=== PATIENT | female | born 1965 | race Caucasian/White ===

== ENCOUNTER 2021-06-10 20:51 | Inpatient (IN) | payer OTHER ==
[~2021-06-10] VITALS: Ht 165.1 cm; Wt 89.8 kg
[2021-06-10 21:34] LABS: BASOPHILS ABSOLUTE AUTO 0.04 K/mm3 (0.00-0.23); BASOPHILS PERCENT AUTO 1 % (0-2); EOSINOPHILS ABSOLUTE AUTO 0.06 K/mm3 (0.00-0.68); EOSINOPHILS PERCENT AUTO 1 % (0-6); Hematocrit 46.3 % (33.0-51.0); Hemoglobin 15.4 g/dL (11.5-16.0); IMMATURE GRAN ABSOLUTE AUTO 0.03 K/mm3 (0.00-0.10); IMMATURE GRAN PERCENT AUTO 0 % (0-1); LYMPHOCYTES ABSOLUTE AUTO 2.32 K/mm3 (0.84-5.20); LYMPHOCYTES PERCENT AUTO 30 % (21-46); MONOCYTES ABSOLUTE AUTO 0.52 K/mm3 (0.16-1.47); MONOCYTES PERCENT AUTO 7 % (4-13); Mean Corpuscular HGB 31.4 pg (26.0-34.0); Mean Corpuscular HGB Conc 33.3 g/dL (31.5-36.5); Mean Corpuscular Volume 95 fL (80-100); NEUTROPHILS ABSOLUTE AUTO 4.76 K/mm3 (1.96-9.15); NEUTROPHILS PERCENT AUTO 62 % (41-73); Platelet Count 292 K/mm3 (150-400); White Blood Cell Count 7.73 K/mm3 (4.00-11.30)
[2021-06-10] MEDS ORDERED: PREG300 PO (21:55)
[2021-06-10] MEDS ORDERED: DULO30 PO (21:55)
[2021-06-10] MEDS ORDERED: BUPR150ER PO (21:56)
[2021-06-10 22:15] LABS: Alanine Aminotransfer (ALT/SGP 71 U/L (12-78); Albumin, Blood 3.3 g/dL (3.4-5.0); Albumin/Globulin Ratio 0.8 (0.8-1.8); Alk Phos 181 U/L (50-136); Anion Gap 6 mmol/L (6-16); Aspartate Aminotrans (AST/SGOT 137 U/L (12-37); Bilirubin, Total 0.3 mg/dL (0.1-1.0); Blood Urea Nitrogen 8 mg/dL (8-24); Bun/Creatinine Ratio 9.3 (12.0-20.0); CO2, Blood 29 mmol/L (21-32); Calcium, Blood 9.6 mg/dL (8.5-10.1); Chloride, Blood 105 mmol/L (98-108); Creatinine, Blood 0.86 mg/dL (0.40-1.00); Globulin, Blood 3.9 g/dL (2.2-4.0); Glomerular Filtration Rate >60 (60-); Glucose, Blood 134 mg/dL (70-99); Potassium, Blood 3.7 mmol/L (3.5-5.5); Sodium, Blood 140 mmol/L (136-145); Total Protein, Blood 7.2 g/dL (6.4-8.2)
[2021-06-10 22:26] LABS: Source, Urine Clean Catch
[2021-06-10 23:15] LABS: Appearance, Urine Hazy (Clear); Bilirubin, Urine Neg (Neg); Blood, Urine 4+ (Neg); Color, Urine Yellow (P-Yellow); Glucose Qualitative, Urine Neg (Neg); Ketones, Urine Neg (Neg); Leukocyte Esterase, Urine 3+ (Neg); Nitrite, Urine Neg (Neg); Protein, Urine 2+ (Neg); Urobilinogen, Urine NORM (Normal)
[2021-06-10 23:33] LABS: White Blood Cells, Urine 25-50 /hpf (0-5)
[2021-06-10 23:34] LABS: Bacteria Many /hpf; Squamous Epithelial Cells Mod /hpf (Few)
[2021-06-11 05:17] LABS: Influenza A, PCR NEGATIVE (NEGATIVE); Influenza B, PCR NEGATIVE (NEGATIVE); Resp Syncytial Virus, PCR NEGATIVE (NEGATIVE); SARS-Cov-2 (COVID-19) PCR, MMC NEGATIVE (NEGATIVE)
[2021-06-11 06:22] LABS: Alanine Aminotransfer (ALT/SGP 62 U/L (12-78); Albumin, Blood 3.2 g/dL (3.4-5.0); Alk Phos 165 U/L (50-136); Anion Gap 6 mmol/L (6-16); Aspartate Aminotrans (AST/SGOT 77 U/L (12-37); Bilirubin, Total 0.3 mg/dL (0.1-1.0); Blood Urea Nitrogen 8 mg/dL (8-24); Bun/Creatinine Ratio 10.5 (12.0-20.0); CO2, Blood 29 mmol/L (21-32); Calcium, Blood 8.7 mg/dL (8.5-10.1); Chloride, Blood 105 mmol/L (98-108); Creatinine, Blood 0.76 mg/dL (0.40-1.00); Globulin, Blood 3.2 g/dL (2.2-4.0); Glomerular Filtration Rate >60 (60-); Glucose, Blood 109 mg/dL (70-99); Potassium, Blood 4.2 mmol/L (3.5-5.5); Sodium, Blood 140 mmol/L (136-145); Total Protein, Blood 6.4 g/dL (6.4-8.2)
--- NOTE | 2021-06-11 07:19 | NUR ---
PT ADMITTED FOR SUSPECTED PANCREATITIS, SCHEDULED FOR MRI. PT HYPERTENSIVE THROUGH SHIFT, MEDICATED PER EMAR. PAIN MEDICATED PER EMAR WELL. NO OTHER COMPLAINTS THIS SHIFT. CIWA SCORE ZERO. PT IS A STAND BY ASSIST IN ROOM. WILL CONTINUE TO MONITOR.
--- NOTE | 2021-06-11 18:43 | NUR ---
PT IS A/O AND INDEPENDENT IN THE ROOM. DIET ADVANCED TO CLEARS TODAY AND SHE APPEARS TO BE TOLERATING WELL. DIET TO BE ADVANCED TO FULL LIQUIDS FOR BREAKFAST. TELE DISCONTINUED THIS AFTERNOON AND RETURNED TO EDGING MACHINE FEEDER. PT IS RECIEVING IV FENTANYL FOR EPIGASTRIC AND BACK PAIN. SHE REPORTS FEELING BETTER THAN WHEN SHE FIRST ARRIVED TO HOSPITAL. NO ACUTE CHANGES NOTED THIS SHIFT, WILL CONTINUE TO MONITOR AND REPORT TO ONCOMING RN.
--- NOTE | 2021-06-12 04:25 | NUR ---
MANAGER OF DRILLING SUMMARY ADMITTED FOR PANCREATITIS. PT IS FULL CODE. CONTINUED PAIN MANAGEMENT. PT MEDICATED MULTIPLE TIMES FOR PAIN THROUGHOUT THE NIGHT. PAIN WORSENS WITH AMBULATION TO THE RESTROOM. PT UP EVERY FEW HOURS FOR PAIN MEDICATION. NO OTHER CONCERNS THIS SHIFT.
[2021-06-12 07:20] LABS: Alanine Aminotransfer (ALT/SGP 41 U/L (12-78); Albumin, Blood 2.6 g/dL (3.4-5.0); Albumin/Globulin Ratio 0.8 (0.8-1.8); Alk Phos 124 U/L (50-136); Anion Gap 4 mmol/L (6-16); Aspartate Aminotrans (AST/SGOT 28 U/L (12-37); Bilirubin, Total 0.4 mg/dL (0.1-1.0); Blood Urea Nitrogen 5 mg/dL (8-24); Bun/Creatinine Ratio 6.6 (12.0-20.0); CO2, Blood 32 mmol/L (21-32); Calcium, Blood 8.6 mg/dL (8.5-10.1); Chloride, Blood 106 mmol/L (98-108); Creatinine, Blood 0.76 mg/dL (0.40-1.00); Globulin, Blood 3.3 g/dL (2.2-4.0); Glomerular Filtration Rate >60 (60-); Glucose, Blood 128 mg/dL (70-99); Potassium, Blood 3.7 mmol/L (3.5-5.5); Sodium, Blood 142 mmol/L (136-145); Total Protein, Blood 5.9 g/dL (6.4-8.2)
[2021-06-12] MEDS ORDERED: ONDA4 PO (14:43)
[2021-06-12] MEDS ORDERED: OXYC5 PO (14:44)
[2021-06-12] MEDS ORDERED: B-1100 M2 PO (14:44)
--- NOTE | 2021-06-12 15:22 | NUR ---
I went up to visit this patient in her [facility] room 324, patient's spouse was also in her room and plans to help with discharge transportation. Patient states she lives with her spouse and feels safe to discharge home. Patient denies barriers to discharge. Per chart review with Dr. Marie, patient appropriate for discharge today. I scheduled a hospital follow-up with Dr. Guillermo Tovar on Tuesday, June 15, 2021 at 09:00 AM. Patient acknowledged she will be able to attend appointment.
--- NOTE | 2021-06-12 15:25 | NUR ---
DISCHARGE DISCHARGE INSTRUCTIONS, MEDICATION LIST AND FOLLOW UP APPOINTMENT REVIEWED WITH PT AND HER SPOUSE. QUESTIONS/CONCERNS ANSWERED. PT AND SPOUSE VERBALLY INDICATED UNDERSTANDING OF ALL INSTRUCTIONS RECEIVED. PER PT SHE HAS A FOLLOW UP APPOINTMENT ON TUESDAY, Jun. MEDICATIONS FAXED TO [facility] IN [place] AND HARD COPY SCRIP FOR OXICODONE GIVEN TO PT. ESCORTED OUT VIA W/C BY STUDENT NURSE.
== END 2021-06-12 15:10 | disposition home or self-care (01) | DRG 438 ==
LOC: ER 20:51 → MEDS 06-11 00:58
PROVIDERS: Family Medicine; Physician Assistant; ADMIT Internal Medicine
DX: K85.20 Alcohol induced acute pancreatitis without necrosis or infection (principal); J96.01 Acute respiratory failure with hypoxia; N39.0 Urinary tract infection, site not specified; Z20.822 Contact with and (suspected) exposure to COVID-19; K83.8 Other specified diseases of biliary tract; I10 Essential (primary) hypertension; E66.9 Obesity, unspecified; Z68.33 Body mass index [BMI] 33.0-33.9, adult; Z23 Encounter for immunization; F10.20 Alcohol dependence, uncomplicated; F17.210 Nicotine dependence, cigarettes, uncomplicated; Z88.1 Allergy status to other antibiotic agents; Z79.899 Other long term (current) drug therapy; Z71.41 Alcohol abuse counseling and surveillance of alcoholic; Z71.6 Tobacco abuse counseling
CPT/HCPCS: 0241U; 36415; 71046; 74181; 76705; 80053; 81001; 83690; 85025; 87086; 90686; 93005; 93010; 96374; 96375; 99285-25; A9270; C9113; J0696; J1650; J2270; J2405; J3010; J3411; J7030; J7120

== ENCOUNTER 2021-06-26 13:28 | Inpatient (IN) | payer OTHER ==
[~2021-06-26] VITALS: Ht 165.1 cm; Wt 89.2 kg
[~2021-06-26 13:28] MED LIST: B-1100 M2 PO; BUPR150ER PO; DULO30 PO; ONDA4 PO; OXYC5 PO; PREG200 PO
[2021-06-26 14:43] LABS: BASOPHILS ABSOLUTE AUTO 0.03 K/mm3 (0.00-0.23); BASOPHILS PERCENT AUTO 0 % (0-2); EOSINOPHILS ABSOLUTE AUTO 0.04 K/mm3 (0.00-0.68); EOSINOPHILS PERCENT AUTO 0 % (0-6); Hematocrit 49.1 % (33.0-51.0); Hemoglobin 15.5 g/dL (11.5-16.0); IMMATURE GRAN ABSOLUTE AUTO 0.03 K/mm3 (0.00-0.10); IMMATURE GRAN PERCENT AUTO 0 % (0-1); LYMPHOCYTES ABSOLUTE AUTO 1.52 K/mm3 (0.84-5.20); LYMPHOCYTES PERCENT AUTO 16 % (21-46); MONOCYTES ABSOLUTE AUTO 0.57 K/mm3 (0.16-1.47); MONOCYTES PERCENT AUTO 6 % (4-13); Mean Corpuscular HGB 31.4 pg (26.0-34.0); Mean Corpuscular HGB Conc 31.6 g/dL (31.5-36.5); Mean Corpuscular Volume 100 fL (80-100); Mean Platelet Volume 11.3 fL (9.1-12.4); NEUTROPHILS PERCENT AUTO 77 % (41-73); Platelet Count 270 K/mm3 (150-400); RDW Coefficient Variation 17.4 % (11.7-14.2); Red Blood Cell Count 4.93 M/mm3 (3.80-5.20); White Blood Cell Count 9.49 K/mm3 (4.00-11.30)
[2021-06-26 15:00] LABS: Alanine Aminotransfer (ALT/SGP 17 U/L (12-78); Albumin, Blood 2.9 g/dL (3.4-5.0); Albumin/Globulin Ratio 0.6 (0.8-1.8); Alk Phos 140 U/L (50-136); Anion Gap 6 mmol/L (6-16); Aspartate Aminotrans (AST/SGOT 21 U/L (12-37); Bilirubin, Total 0.7 mg/dL (0.1-1.0); Blood Urea Nitrogen 8 mg/dL (8-24); Bun/Creatinine Ratio 10.2 (12.0-20.0); CO2, Blood 30 mmol/L (21-32); Chloride, Blood 102 mmol/L (98-108); Creatinine, Blood 0.78 mg/dL (0.40-1.00); Globulin, Blood 5.2 g/dL (2.2-4.0); Glomerular Filtration Rate >60 (60-); Glucose, Blood 200 mg/dL (70-99); Potassium, Blood 3.7 mmol/L (3.5-5.5); Sodium, Blood 138 mmol/L (136-145); Total Protein, Blood 8.1 g/dL (6.4-8.2)
--- NOTE | 2021-06-26 16:50 | NUR ---
PT GIVEN SVN ORDERED. BS= SCAT I:E WHEEZES T/O. DECREASED AERATION T/O. PT WAS TRAILED ON ROOM AIR WHILE ON SVN TX. O2 SATS DECR TO 80%, THEN OXYGEN WAS REAPPLIED. RN WAS IN ROOM AT THIS TIME.
[2021-06-27] MEDS ORDERED: TRAM50 PO (00:43)
[2021-06-27 04:40] LABS: BASOPHILS ABSOLUTE AUTO 0.01 K/mm3 (0.00-0.23); BASOPHILS PERCENT AUTO 0 % (0-2); EOSINOPHILS PERCENT AUTO 0 % (0-6); Hematocrit 43.8 % (33.0-51.0); Hemoglobin 13.8 g/dL (11.5-16.0); Mean Corpuscular HGB 31.4 pg (26.0-34.0); Mean Corpuscular HGB Conc 31.5 g/dL (31.5-36.5); Mean Corpuscular Volume 100 fL (80-100); Mean Platelet Volume 11.2 fL (9.1-12.4); Platelet Count 273 K/mm3 (150-400); RDW Coefficient Variation 17.2 % (11.7-14.2); RDW Standard Deviation 62.6 fL (35.1-46.3); Red Blood Cell Count 4.39 M/mm3 (3.80-5.20); White Blood Cell Count 5.78 K/mm3 (4.00-11.30)
[2021-06-27 04:49] LABS: IMMATURE GRAN ABSOLUTE AUTO 0.04 K/mm3 (0.00-0.10); IMMATURE GRAN PERCENT AUTO 1 % (0-1); LYMPHOCYTES ABSOLUTE AUTO 0.54 K/mm3 (0.84-5.20); LYMPHOCYTES PERCENT AUTO 9 % (21-46); MONOCYTES ABSOLUTE AUTO 0.04 K/mm3 (0.16-1.47); MONOCYTES PERCENT AUTO 1 % (4-13); NEUTROPHILS ABSOLUTE AUTO 5.15 K/mm3 (1.96-9.15); NEUTROPHILS PERCENT AUTO 89 % (41-73)
[2021-06-27 05:01] LABS: Alanine Aminotransfer (ALT/SGP 15 U/L (12-78); Albumin, Blood 2.5 g/dL (3.4-5.0); Albumin/Globulin Ratio 0.6 (0.8-1.8); Alk Phos 126 U/L (50-136); Anion Gap 5 mmol/L (6-16); Aspartate Aminotrans (AST/SGOT 15 U/L (12-37); Bilirubin, Total 0.3 mg/dL (0.1-1.0); Blood Urea Nitrogen 11 mg/dL (8-24); Bun/Creatinine Ratio 13.2 (12.0-20.0); CO2, Blood 28 mmol/L (21-32); Calcium, Blood 7.8 mg/dL (8.5-10.1); Chloride, Blood 110 mmol/L (98-108); Creatinine, Blood 0.83 mg/dL (0.40-1.00); Globulin, Blood 3.9 g/dL (2.2-4.0); Glomerular Filtration Rate >60 (60-); Glucose, Blood 188 mg/dL (70-99); Potassium, Blood 4.3 mmol/L (3.5-5.5); Sodium, Blood 143 mmol/L (136-145); Total Protein, Blood 6.4 g/dL (6.4-8.2)
--- NOTE | 2021-06-27 06:32 | NUR ---
SPRAY APPLICATOR SUMMARY PATIENT IS AN ADMISSION OF THE SHIFT. SHE IS ALERT AND ORIENTED. ASSESSMENT DONE AND VITALS CHECKED AND RECORDED. SHE DOES NOT HAVE ANY SKIN BREAKDOWN. PATIENT IN PAIN, GOT AN ORDER FOR TRAMADOL SEE EMAR SAME WAS ADMINISTERED. SHE WAS MADE COMFORTABLE, SAFETY MEASURES IN PLACE. WILL CONTINUE TO MONITOR HER.
--- NOTE | 2021-06-27 18:10 | NUR ---
SHIFT SUMMARY; PATIENT STARTED SHIFT BEING VERY TEARFUL AND WANTING PAIN MEDICATIONS. THIS RN COMMUNICATES WITH AND HE CHANGES MEDICATIONS FOR THIS PATIENT TO ACCOMADATE HER HOME SCHEDULE. PATIENT SITS ON SIDE OF BED WHEN SHE IS AWAKE FACING WINDOW. SHE DOES REST PERIODICALLY DURING THE DAY AND IS UP TO THE BATHROOM WITHOUT ASSIST NEEDED. SHE IS AO X 4 TODAY AND IS COOPERATIVE WITH CARE. SPOUSE VISITS PATIENT TODAY. AND VERBALIZED THAT PATIENT WILL RETURN HOME WITH HIM AT [place]. PATIENTS LUNGS ARE CLEAR IN UPPER LOBES HOWEVER WHEEZES ARE NOTED THAT CLEAR WITH COUGH. PATIENT RECEIVED INSTRUCTION FROM RT TODAY ON HOW TO USE INCENTIVE SPIROMETER AND IS ABLE TO DEMONSTRATE FOR HIM. WILL REMAIN AVAILABLE FOR THIS PATIENT FOR ANY WANTS OR NEEDS UNTIL HAND OFF AT SHIFT CHANGE. RACHEL CULP RN
--- NOTE | 2021-06-28 18:06 | NUR ---
SHIFT SUMMARY; PATIENT UP TO SHOWER TODAY. AMBULATES TO AND FROM BATHROOM WITHOUT ASSIST. DENIES ANY SOB WITH EXERTION. SHE ASKS FOR PAIN MEDICATION X 3 TODAY FOR GENRALIZED BODY ACHES AND BACK PAIN. ORDERED NYSTATIN CREME FOR PATIENT YEAST INFECTION UNDER BREASTS AND IN ALBERT AREA. RACHEL CULP RN
--- NOTE | 2021-06-29 05:11 | NUR ---
PT A7O X4 WITH SLOW RESPONSE. ON O2 @ 3L/NC. SR IN THE 70'S. RESTED WELL OVER NIGHT AND DID NOT REQUIRE PAIN MEDICATION.
--- NOTE | 2021-06-29 18:34 | NUR ---
SHIFT SUMMARY PT HAS BEEN ANXIOUS FOR PAIN MEDICATIONS ALL DAY. SHE WAS MEANT TO DISCHARGE THIS AFTERNOON DR WANTS HER TO HAVE MORE ABX AND STEROIDS BEFORE SHE GOES HOME. SHE STATES SHE IS ANXIOUS TO LEAVE. BESIDES BEING ANXIOUS AND AGITATED FOR PAIN MEDICATION SHE HAS BEEN COOPERATIVE WITH CARE. HOPEFUL TO DISCHARGE TOMORROW WILL CONTINUE TO MONITOR.
--- NOTE | 2021-06-30 05:01 | NUR ---
SHIFT SUMMARY PT AOX3 AND WATCHING TV IN BED AT THE START OF THIS SHIFT. PT HAD WHEEZES HEARD WHILE AMBULATING TO THE BATHROOM BUT LUNGS SOUND CLEAR. PT. C/O PAIN AND HAS PHONE SET TO REMIND NURSES ABOUT PAIN MEDS. PT. C/O BACK, NECK AND LEGS HURTING THIS SHIFT BUT MEDICATED PER EMAR AND EFFECTIVE. PT HAS NOT RESTED MUCH THIS SHIFT AND CURRENTLY IN BED WATCHING TV. THIS NURSE WILL CONTINUE TO MONITOR UNTIL REPORT IS GIVEN.
[2021-06-30 05:37] LABS: BASOPHILS ABSOLUTE AUTO 0.02 K/mm3 (0.00-0.23); BASOPHILS PERCENT AUTO 0 % (0-2); EOSINOPHILS PERCENT AUTO 0 % (0-6); Hemoglobin 13.3 g/dL (11.5-16.0); IMMATURE GRAN ABSOLUTE AUTO 0.11 K/mm3 (0.00-0.10); IMMATURE GRAN PERCENT AUTO 1 % (0-1); LYMPHOCYTES ABSOLUTE AUTO 0.66 K/mm3 (0.84-5.20); LYMPHOCYTES PERCENT AUTO 8 % (21-46); MONOCYTES ABSOLUTE AUTO 0.11 K/mm3 (0.16-1.47); MONOCYTES PERCENT AUTO 1 % (4-13); Mean Corpuscular HGB 31.3 pg (26.0-34.0); Mean Corpuscular HGB Conc 31.7 g/dL (31.5-36.5); Mean Corpuscular Volume 99 fL (80-100); Mean Platelet Volume 10.6 fL (9.1-12.4); NEUTROPHILS ABSOLUTE AUTO 7.01 K/mm3 (1.96-9.15); NEUTROPHILS PERCENT AUTO 89 % (41-73); Platelet Count 375 K/mm3 (150-400); RDW Coefficient Variation 16.8 % (11.7-14.2); RDW Standard Deviation 60.3 fL (35.1-46.3); Red Blood Cell Count 4.25 M/mm3 (3.80-5.20); White Blood Cell Count 7.91 K/mm3 (4.00-11.30)
[2021-06-30 06:27] LABS: Alanine Aminotransfer (ALT/SGP 19 U/L (12-78); Albumin, Blood 2.6 g/dL (3.4-5.0); Albumin/Globulin Ratio 0.7 (0.8-1.8); Alk Phos 112 U/L (50-136); Anion Gap 8 mmol/L (6-16); Aspartate Aminotrans (AST/SGOT 16 U/L (12-37); Bilirubin, Total 0.4 mg/dL (0.1-1.0); Blood Urea Nitrogen 10 mg/dL (8-24); Bun/Creatinine Ratio 13.6 (12.0-20.0); CO2, Blood 32 mmol/L (21-32); Calcium, Blood 8.9 mg/dL (8.5-10.1); Chloride, Blood 97 mmol/L (98-108); Creatinine, Blood 0.74 mg/dL (0.40-1.00); Globulin, Blood 3.7 g/dL (2.2-4.0); Glomerular Filtration Rate >60 (60-); Glucose, Blood 283 mg/dL (70-99); Potassium, Blood 4.6 mmol/L (3.5-5.5); Sodium, Blood 137 mmol/L (136-145); Total Protein, Blood 6.3 g/dL (6.4-8.2)
--- NOTE | 2021-06-30 09:19 | NUR ---
I went to visit Maci yesterday in her [facility] room 327. Patient was alert and sitting upright in her bed. Patient wanted to discuss changing her [place] PCP to someone at the [facility] location, as we previously discussed last time she was in the hospital. She was advised to complete and return the PCP Change Request form. She states she did this and returned it to [place] and has not received a response back. I plan to reach out to the [employer] pharmaceutical officer regarding this. I do not think they will fulfill her request. She states she is wanting to change providers due to Dr. Tovar cutting her Lyrica and Tramodal prescriptions in half. She states she would also like to request the female version of viagra due to a low libido. I discussed this with Dr. Brambila and agreed this is something she should discuss with her PCP. Patient is aware she will likely discharge home today with Home 02.
[2021-06-30] MEDS ORDERED: GUAI600T33 PO (11:56)
[2021-06-30] MEDS ORDERED: ACET325 PO (11:56)
[2021-06-30] MEDS ORDERED: Prinivil10 MG PO (11:56)
[2021-06-30] MEDS ORDERED: AZIT250 PO (11:57)
[2021-06-30] MEDS ORDERED: ALBU90OI INH (11:57)
[2021-06-30] MEDS ORDERED: VISBIOME 112.51 EACH PO (11:57)
[2021-06-30] MEDS ORDERED: FLUT1DIS8 INH (11:58)
[2021-06-30] MEDS ORDERED: CEFP200 PO (11:58)
[2021-06-30] MEDS ORDERED: Prednisone10 MG PO (11:59)
--- NOTE | 2021-06-30 12:21 | NUR ---
Per chart review with Dr. Brambila, patient appropriate for discharge. Patient feels safe to return home and denies barriers to discharge. I scheduled a hospital follow up for tomorrow with Leandra Guerrero at 11am. Patient is aware of this. Patient again asked about the status of her provider change request. I reached out to Caitlyn - Anna Coordinator at [facility]. The request has been received and yet to be reviewed. Patient states her will be here at [facility] about 1:00PM to help with transportation home.
--- NOTE | 2021-06-30 13:29 | NUR ---
DISCHARGE SUMMARY PT DISCHARGED TO HOME. PT LEFT ROOM VIA WHEELCHAIR AT THIS TIME WITH COUTIERIER ESCORT. IV DC'D AND BELONGINGS RETURNED. PT HAD HOME 02 EVAL AND PER KASEY BAH, PT REQUIRES 2L O2 WITH EXERTION. PT EDUCATED ON SMOKING CESSATION AND NOT USING 02 WHILE SMOKING, PT AGREES. PT EDUCATED ON MEDICATIONS WELL. CHARLY MIRANDA PEYTONA NOTIFIED OF THE 02 REQUIREMENT WHO AGREES TO CONTACT [facility] TO DELIVER THE 02 TANK TO PATIENT'S HOME. PATIENT REFUSED TO WAIT FOR DISCHARGE IN ORDER FOR DELIVERY OF TANK TO HAPPEN HERE AT THE HOSPITAL. PT EDUCATED ABOUT THE RISKS ASSOCIATED WITH LEAVING WITHOUT HOME 02, PT AWARE. PT AGREES TO ADMIN DIR MEDICATIONS FROM PHARMACY AND TO FOLLOW UP WITH PCP TOMORROW.
== END 2021-06-30 13:53 | disposition home or self-care (01) | DRG 193 ==
LOC: ER 13:28 → MEDS 18:30
PROVIDERS: Hospitalist; Physician Assistant; ADMIT Internal Medicine
DX: J18.9 Pneumonia, unspecified organism (principal); J96.01 Acute respiratory failure with hypoxia; J44.0 Chronic obstructive pulmonary disease with (acute) lower respiratory infection; J44.1 Chronic obstructive pulmonary disease with (acute) exacerbation; F41.9 Anxiety disorder, unspecified; I10 Essential (primary) hypertension; G89.4 Chronic pain syndrome; G62.9 Polyneuropathy, unspecified; Z88.8 Allergy status to other drugs, medicaments and biological substances; F32.A Depression, unspecified; Z79.899 Other long term (current) drug therapy; F17.210 Nicotine dependence, cigarettes, uncomplicated
CPT/HCPCS: 36415; 71046; 80053; 83605; 83690; 83735; 83880; 84145; 85025; 87070; 87205; 94640; 94668; 94760; 94761; 96372; 96374; 96375; 96376; 99285-25; A9270; G0480; J0456; J0692; J0696; J1650; J1885; J2405; J2920; J2930; J3370; J7030; J7050; J7512

== ENCOUNTER 2021-12-19 11:17 | Inpatient (IN) | payer OTHER ==
[~2021-12-19] VITALS: Ht 170.2 cm; Wt 86.2 kg
[~2021-12-19 11:17] MED LIST changes: +ACET325 PO; +ALBU90OI INH; +AZIT250 PO; +CEFP200 PO; +FLUT1DIS8 INH; +GUAI600T33 PO; +Prednisone10 MG PO; +Prinivil10 MG PO; +TRAM50 PO; +VISBIOME 112.51 EACH PO
[2021-12-19 11:38] LABS: BASOPHILS ABSOLUTE AUTO 0.01 K/mm3 (0.00-0.23); BASOPHILS PERCENT AUTO 0 % (0-2); EOSINOPHILS ABSOLUTE AUTO 0.02 K/mm3 (0.00-0.68); EOSINOPHILS PERCENT AUTO 0 % (0-6); Hematocrit 34.1 % (33.0-51.0); Hemoglobin 11.6 g/dL (11.5-16.0); IMMATURE GRAN ABSOLUTE AUTO 0.03 K/mm3 (0.00-0.10); IMMATURE GRAN PERCENT AUTO 0 % (0-1); LYMPHOCYTES ABSOLUTE AUTO 0.66 K/mm3 (0.84-5.20); LYMPHOCYTES PERCENT AUTO 7 % (21-46); MONOCYTES ABSOLUTE AUTO 0.41 K/mm3 (0.16-1.47); MONOCYTES PERCENT AUTO 4 % (4-13); Mean Corpuscular Volume 94 fL (80-100); Mean Platelet Volume 10.4 fL (9.1-12.4); NEUTROPHILS ABSOLUTE AUTO 8.31 K/mm3 (1.96-9.15); NEUTROPHILS PERCENT AUTO 88 % (41-73); Platelet Count 261 K/mm3 (150-400); RDW Coefficient Variation 14.7 % (11.7-14.2); RDW Standard Deviation 51.4 fL (35.1-46.3); Red Blood Cell Count 3.62 M/mm3 (3.80-5.20); White Blood Cell Count 9.44 K/mm3 (4.00-11.30)
[2021-12-19 11:57] LABS: Albumin, Blood 2.6 g/dL (3.4-5.0); Albumin/Globulin Ratio 0.7 (0.8-1.8); Bilirubin, Total 0.6 mg/dL (0.1-1.0); Bun/Creatinine Ratio 9.9 (12.0-20.0); Calcium, Blood 8.5 mg/dL (8.5-10.1); Creatinine, Blood 4.33 mg/dL (0.40-1.00); Globulin, Blood 3.6 g/dL (2.2-4.0); Potassium, Blood 3.8 mmol/L (3.5-5.5); Total Protein, Blood 6.2 g/dL (6.4-8.2)
[2021-12-19] MEDS ORDERED: OMEP20ER PO (12:20)
[2021-12-19 14:25] LABS: Magnesium, Blood 1.9 mg/dL (1.6-2.4); Phosphorus, Blood 4.9 mg/dL (2.5-4.9); Thyroid Stimulating Hormone 0.175 uIU/mL (0.360-4.800)
[2021-12-19 14:29] LABS: Source, Urine Foley catheter
[2021-12-19 14:36] LABS: Appearance, Urine Hazy (Clear); Bilirubin, Urine Neg (Neg); Blood, Urine 2+ (Neg); Color, Urine Yellow (P-Yellow); Glucose Qualitative, Urine Neg (Neg); Ketones, Urine Neg (Neg); Leukocyte Esterase, Urine Neg (Neg); Nitrite, Urine Neg (Neg); Protein, Urine 1+ (Neg); Urobilinogen, Urine NORM (Normal)
[2021-12-19 14:48] LABS: Influenza A, PCR NEGATIVE (NEGATIVE); Influenza B, PCR NEGATIVE (NEGATIVE); Resp Syncytial Virus, PCR NEGATIVE (NEGATIVE); SARS-Cov-2 (COVID-19) PCR, MMC NEGATIVE (NEGATIVE)
[2021-12-19 14:49] LABS: Amorphous Light (0-Heavy); Bacteria Mod /hpf; Hyaline Casts 0-2 /lpf (0-2); Mucus Light (0-Heavy); Red Blood Cells, Urine 0-2 /hpf (0-2); Squamous Epithelial Cells Rare /hpf (Few); Transitional Epithelial Cells Rare /hpf (0-Rare); White Blood Cells, Urine 0-2 /hpf (0-5)
[2021-12-19 14:49] LABS: Free Thyroxine 1.16 ng/dL (0.70-1.60); Thyroxine (T4) 7.9 ug/dL (4.8-13.9)
[2021-12-19 14:50] LABS: Triiodothyronine, Free 1.18 pg/mL (2.18-3.98)
[2021-12-20 05:13] LABS: BASOPHILS ABSOLUTE AUTO 0.01 K/mm3 (0.00-0.23); BASOPHILS PERCENT AUTO 0 % (0-2); EOSINOPHILS ABSOLUTE AUTO 0.05 K/mm3 (0.00-0.68); EOSINOPHILS PERCENT AUTO 1 % (0-6); Hematocrit 33.2 % (33.0-51.0); Hemoglobin 11.1 g/dL (11.5-16.0); IMMATURE GRAN ABSOLUTE AUTO 0.03 K/mm3 (0.00-0.10); IMMATURE GRAN PERCENT AUTO 0 % (0-1); LYMPHOCYTES ABSOLUTE AUTO 1.32 K/mm3 (0.84-5.20); LYMPHOCYTES PERCENT AUTO 16 % (21-46); MONOCYTES PERCENT AUTO 6 % (4-13); Mean Corpuscular HGB 31.8 pg (26.0-34.0); Mean Corpuscular HGB Conc 33.4 g/dL (31.5-36.5); Mean Corpuscular Volume 95 fL (80-100); Mean Platelet Volume 10.9 fL (9.1-12.4); NEUTROPHILS ABSOLUTE AUTO 6.56 K/mm3 (1.96-9.15); NEUTROPHILS PERCENT AUTO 77 % (41-73); Platelet Count 242 K/mm3 (150-400); RDW Coefficient Variation 15.2 % (11.7-14.2); RDW Standard Deviation 53.1 fL (35.1-46.3); Red Blood Cell Count 3.49 M/mm3 (3.80-5.20); White Blood Cell Count 8.47 K/mm3 (4.00-11.30)
--- NOTE | 2021-12-20 05:36 | NUR ---
PT IS ALERT ORIENTED 2-3, SOME CONFUSION T/O SHIFT. PT IS WEARING ATTENDS, 2L O2 APPLIED AT NIGHT PT BREATHES SHALLOW WHEN ASLEEP. NICOTINE PATCH ON R SHOULDER.
[2021-12-20 05:53] LABS: Albumin, Blood 2.2 g/dL (3.4-5.0); Albumin/Globulin Ratio 0.7 (0.8-1.8); Bilirubin, Total 0.5 mg/dL (0.1-1.0); Calcium, Blood 8.4 mg/dL (8.5-10.1); Creatinine, Blood 3.25 mg/dL (0.40-1.00); Globulin, Blood 3.3 g/dL (2.2-4.0); Potassium, Blood 3.6 mmol/L (3.5-5.5); Total Protein, Blood 5.5 g/dL (6.4-8.2)
--- NOTE | 2021-12-20 16:43 | NUR ---
AOX3-4, SOME FORGETFULNESS. CAN MAKE SOME NEEDS KNOWN, COOPERATIVE WITH MEDICATIONS AND CARE. SBA WITH FWW WHEN AMBULATING. O2 VIA NC AT 2L, MOSTLY NEEDED WHEN SLEEPING; PT HAS BEEN SLEEPING MOST OF THE DAY. PT HAS ATE VERY LITTLE TODAY; ONLY DRINKING SMALL AMOUNT OF SODA. PT STATES PAIN IN HER NECK, NO PAIN MEDS ORDERED D/T KIDNEY FUNCTION; HEAT PAD CURRENTLY IN USE. PT HAS OCCASIONAL INCONTINENCE WHILE SLEEPING. FAMILY VISITED THIS MORNING. CALL-LIGHT WITHIN REACH; BED IN LOWEST POSITION.
--- NOTE | 2021-12-21 00:04 | NUR ---
PT GOT UP TO USE THE BSC AND I WAS STRAIGHTENING UP THEIR BED I NOTICED THERE WAS A VAPE PEN IN THE BAG ON HER BED. PT WOULD NOT ALLOW ME TO REMOVE THE BAG NOR SEE WHAT WAS INSIDE OF IT BEFORE. I REMOVED THE DEVICE AND NOTIFIED THE NURSE WHO ADVISED ME TO REMOVE THE CARTRIDGE AND GIVE THE PEN ITSELF BACK TO THE PT. I ALSO NOTIFIED MY CHARGE NURSE. THE PT WAS VERY UPSET WITH ME FOR TOUCHING THEIR STUFF. I INFORMED THEM THAT THEY WERE IN THE HOSPITAL AND THAT THIS IS A SMOKE FREE CAMPUS AND THAT THEY CANNOT SMOKE HERE. THEY SWORE AT ME AND TOLD ME TO GET OUT.
[2021-12-21 04:31] LABS: BASOPHILS ABSOLUTE AUTO 0.02 K/mm3 (0.00-0.23); BASOPHILS PERCENT AUTO 0 % (0-2); EOSINOPHILS ABSOLUTE AUTO 0.05 K/mm3 (0.00-0.68); EOSINOPHILS PERCENT AUTO 1 % (0-6); Hematocrit 32.5 % (33.0-51.0); Hemoglobin 10.9 g/dL (11.5-16.0); IMMATURE GRAN ABSOLUTE AUTO 0.03 K/mm3 (0.00-0.10); IMMATURE GRAN PERCENT AUTO 0 % (0-1); LYMPHOCYTES ABSOLUTE AUTO 1.65 K/mm3 (0.84-5.20); LYMPHOCYTES PERCENT AUTO 17 % (21-46); MONOCYTES ABSOLUTE AUTO 0.63 K/mm3 (0.16-1.47); MONOCYTES PERCENT AUTO 6 % (4-13); Mean Corpuscular HGB 31.5 pg (26.0-34.0); Mean Corpuscular HGB Conc 33.5 g/dL (31.5-36.5); Mean Corpuscular Volume 94 fL (80-100); Mean Platelet Volume 10.8 fL (9.1-12.4); NEUTROPHILS ABSOLUTE AUTO 7.39 K/mm3 (1.96-9.15); NEUTROPHILS PERCENT AUTO 76 % (41-73); Platelet Count 244 K/mm3 (150-400); RDW Coefficient Variation 15.1 % (11.7-14.2); RDW Standard Deviation 51.9 fL (35.1-46.3); Red Blood Cell Count 3.46 M/mm3 (3.80-5.20); White Blood Cell Count 9.77 K/mm3 (4.00-11.30)
[2021-12-21 05:04] LABS: Albumin/Globulin Ratio 0.6 (0.8-1.8); Bilirubin, Total 0.5 mg/dL (0.1-1.0); Bun/Creatinine Ratio 13.1 (12.0-20.0); Calcium, Blood 8.4 mg/dL (8.5-10.1); Creatinine, Blood 2.06 mg/dL (0.40-1.00); Globulin, Blood 3.3 g/dL (2.2-4.0); Potassium, Blood 3.3 mmol/L (3.5-5.5); Total Protein, Blood 5.3 g/dL (6.4-8.2)
--- NOTE | 2021-12-21 05:32 | NUR ---
PT IS CONFUSED AT TIMES, WAS USING HER VAPE IN HER ROOM, VAPE CARTRIDGE PUT IN A BAG IN MED DRAWER WITH PT WAD IMPREGNATOR IT, TO BE RETURNED AT DISCHARGE. 1-ASSIST WITH FWW TO RESTROOM. BED ALARM ON.
[2021-12-22 04:35] LABS: BASOPHILS ABSOLUTE AUTO 0.02 K/mm3 (0.00-0.23); BASOPHILS PERCENT AUTO 0 % (0-2); EOSINOPHILS ABSOLUTE AUTO 0.08 K/mm3 (0.00-0.68); EOSINOPHILS PERCENT AUTO 1 % (0-6); Hematocrit 32.3 % (33.0-51.0); IMMATURE GRAN ABSOLUTE AUTO 0.05 K/mm3 (0.00-0.10); IMMATURE GRAN PERCENT AUTO 1 % (0-1); LYMPHOCYTES ABSOLUTE AUTO 1.85 K/mm3 (0.84-5.20); LYMPHOCYTES PERCENT AUTO 18 % (21-46); MONOCYTES ABSOLUTE AUTO 0.73 K/mm3 (0.16-1.47); MONOCYTES PERCENT AUTO 7 % (4-13); Mean Corpuscular HGB Conc 34.1 g/dL (31.5-36.5); Mean Corpuscular Volume 94 fL (80-100); Mean Platelet Volume 10.4 fL (9.1-12.4); NEUTROPHILS ABSOLUTE AUTO 7.85 K/mm3 (1.96-9.15); NEUTROPHILS PERCENT AUTO 74 % (41-73); Platelet Count 229 K/mm3 (150-400); RDW Standard Deviation 51.8 fL (35.1-46.3); Red Blood Cell Count 3.44 M/mm3 (3.80-5.20); White Blood Cell Count 10.58 K/mm3 (4.00-11.30)
[2021-12-22 05:01] LABS: Albumin, Blood 1.9 g/dL (3.4-5.0); Albumin/Globulin Ratio 0.5 (0.8-1.8); Bilirubin, Total 0.4 mg/dL (0.1-1.0); Bun/Creatinine Ratio 12.9 (12.0-20.0); Calcium, Blood 8.2 mg/dL (8.5-10.1); Creatinine, Blood 1.4 mg/dL (0.40-1.00); Globulin, Blood 3.5 g/dL (2.2-4.0); Potassium, Blood 3.1 mmol/L (3.5-5.5); Total Protein, Blood 5.4 g/dL (6.4-8.2)
--- NOTE | 2021-12-22 05:43 | NUR ---
PT IS ALERT, FORGETFUL, CONFUSION CLEARING SOME. 1-ASSIST WITH FWW. IVF RUNNING AT 100.
[2021-12-22] MEDS ORDERED: DULO60 PO (10:43)
[2021-12-22] MEDS ORDERED: PREG75 PO (10:43)
[2021-12-22] MEDS ORDERED: Budeprion Xl300 MG PO (10:45)
[2021-12-22] MEDS ORDERED: AMOCLA875 PO (10:45)
--- NOTE | 2021-12-22 11:03 | NUR ---
PATIENT DISCHARGED MD assessed pt at [facility], orders for discharge home & home health. Case management went to discuss HH with patient, pt refused. RN discussed HH with pt and stated she did not need any help. Reviewed discharge teaching, pt/family verbalized understanding. IV removed, site WNL. Pt left medical floor at 1110.
== END 2021-12-22 11:07 | disposition home health service (06) | DRG 682 ==
LOC: ER 11:17 → MEDS 11:18
PROVIDERS: Emergency Medicine; Family Medicine; Physician Assistant; ADMIT Internal Medicine
DX: N17.9 Acute kidney failure, unspecified (principal); J18.9 Pneumonia, unspecified organism; G92.8 Other toxic encephalopathy; N39.0 Urinary tract infection, site not specified; F17.213 Nicotine dependence, cigarettes, with withdrawal; F19.239 Other psychoactive substance dependence with withdrawal, unspecified; Z20.822 Contact with and (suspected) exposure to COVID-19; K70.30 Alcoholic cirrhosis of liver without ascites; I95.9 Hypotension, unspecified; J44.9 Chronic obstructive pulmonary disease, unspecified; F32.A Depression, unspecified; M19.90 Unspecified osteoarthritis, unspecified site; E55.9 Vitamin D deficiency, unspecified; Z90.89 Acquired absence of other organs; Z90.710 Acquired absence of both cervix and uterus; Z96.642 Presence of left artificial hip joint; Z88.1 Allergy status to other antibiotic agents; Z79.899 Other long term (current) drug therapy; W01.0XXA Fall on same level from slipping, tripping and stumbling without subsequent striking against object, initial encounter
CPT/HCPCS: 0241U; 36415; 70450; 71045; 72125; 74176; 80053; 81001; 82140; 82550; 83605; 83690; 83735; 83970; 84100; 84436; 84439; 84443; 84481; 85025; 87040; 87086; 93005; 93010; 96361; 96365; 96366; 96368; 96372; 96375; 97116; 97162; 97165; 97530; 99285-25; A9270; G0378; J0456; J0696; J1650; J3411; J3475; J7030; J7042; J7050; P9612

== ENCOUNTER 2022-01-06 20:09 | Emergency (ER) | payer OTHER ==
[~2022-01-06] VITALS: Ht 157.5 cm; Wt 72.6 kg
[~2022-01-06 20:09] MED LIST changes: +AMOCLA875 PO; +Budeprion Xl300 MG PO; +DULO60 PO; +OMEP20ER PO; +PREG75 PO
[2022-01-06 20:55] LABS: BASOPHILS ABSOLUTE AUTO 0.06 K/mm3 (0.00-0.23); BASOPHILS PERCENT AUTO 1 % (0-2); EOSINOPHILS ABSOLUTE AUTO 0.18 K/mm3 (0.00-0.68); EOSINOPHILS PERCENT AUTO 2 % (0-6); Hematocrit 40.7 % (33.0-51.0); Hemoglobin 13.6 g/dL (11.5-16.0); IMMATURE GRAN ABSOLUTE AUTO 0.04 K/mm3 (0.00-0.10); IMMATURE GRAN PERCENT AUTO 1 % (0-1); LYMPHOCYTES ABSOLUTE AUTO 2.53 K/mm3 (0.84-5.20); LYMPHOCYTES PERCENT AUTO 32 % (21-46); MONOCYTES ABSOLUTE AUTO 0.68 K/mm3 (0.16-1.47); MONOCYTES PERCENT AUTO 9 % (4-13); Mean Corpuscular HGB 30.8 pg (26.0-34.0); Mean Corpuscular HGB Conc 33.4 g/dL (31.5-36.5); Mean Corpuscular Volume 92 fL (80-100); NEUTROPHILS ABSOLUTE AUTO 4.49 K/mm3 (1.96-9.15); NEUTROPHILS PERCENT AUTO 56 % (41-73); Platelet Count 695 K/mm3 (150-400); RDW Coefficient Variation 16.2 % (11.7-14.2); Red Blood Cell Count 4.41 M/mm3 (3.80-5.20); White Blood Cell Count 7.98 K/mm3 (4.00-11.30)
[2022-01-06 21:13] LABS: Source, Urine Clean Catch
[2022-01-06 21:24] LABS: Blood, Urine Neg (Neg); Color, Urine Amber (P-Yellow); Glucose Qualitative, Urine Neg (Neg); Ketones, Urine 1+ (Neg); Leukocyte Esterase, Urine 1+ (Neg); Nitrite, Urine Neg (Neg); Protein, Urine 2+ (Neg); Urobilinogen, Urine 2+ (Normal)
[2022-01-06 21:31] LABS: Appearance, Urine Clear (Clear); Bilirubin, Urine 1+ (Neg)
[2022-01-06 21:32] LABS: Albumin, Blood 2.8 g/dL (3.4-5.0); Albumin/Globulin Ratio 0.6 (0.8-1.8); Bilirubin, Total 1.2 mg/dL (0.1-1.0); Bun/Creatinine Ratio 11.2 (12.0-20.0); Calcium, Blood 9.8 mg/dL (8.5-10.1); Creatinine, Blood 0.98 mg/dL (0.40-1.00); Globulin, Blood 4.8 g/dL (2.2-4.0); Potassium, Blood 3.9 mmol/L (3.5-5.5); Total Protein, Blood 7.6 g/dL (6.4-8.2)
[2022-01-06 21:33] LABS: Bacteria Mod /hpf; Red Blood Cells, Urine 0-2 /hpf (0-2); Squamous Epithelial Cells Few /hpf (Few)
== END 2022-01-06 23:03 | disposition home or self-care (01) ==
LOC: ER 20:09
PROVIDERS: Student in an Organized Health Care Education/Training Program
DX: R10.13 Epigastric pain (principal); J44.9 Chronic obstructive pulmonary disease, unspecified; F17.200 Nicotine dependence, unspecified, uncomplicated; Z88.8 Allergy status to other drugs, medicaments and biological substances; Z79.899 Other long term (current) drug therapy; Z88.0 Allergy status to penicillin; Z96.642 Presence of left artificial hip joint; Z53.21 Procedure and treatment not carried out due to patient leaving prior to being seen by health care provider
CPT/HCPCS: 74177; 80053; 81001; 83690; 85025; J1885; Q9967

== ENCOUNTER 2022-01-08 08:19 | Inpatient (IN) | payer OTHER ==
[~2022-01-08] VITALS: Ht 165.1 cm; Wt 78.5 kg
[2022-01-08 09:14] LABS: Hematocrit 40.3 % (33.0-51.0); Hemoglobin 13.5 g/dL (11.5-16.0); Mean Corpuscular HGB 31.3 pg (26.0-34.0); Mean Corpuscular HGB Conc 33.5 g/dL (31.5-36.5); Mean Corpuscular Volume 93 fL (80-100); Mean Platelet Volume 10.9 fL (9.1-12.4); Platelet Count 601 K/mm3 (150-400); RDW Coefficient Variation 16.2 % (11.7-14.2); RDW Standard Deviation 55.5 fL (35.1-46.3); Red Blood Cell Count 4.32 M/mm3 (3.80-5.20)
[2022-01-08 09:26] LABS: BASOPHILS ABSOLUTE AUTO 0.03 K/mm3 (0.00-0.23); BASOPHILS PERCENT AUTO 0 % (0-2); EOSINOPHILS ABSOLUTE AUTO 0.11 K/mm3 (0.00-0.68); EOSINOPHILS PERCENT AUTO 2 % (0-6); IMMATURE GRAN ABSOLUTE AUTO 0.02 K/mm3 (0.00-0.10); IMMATURE GRAN PERCENT AUTO 0 % (0-1); LYMPHOCYTES ABSOLUTE AUTO 2.19 K/mm3 (0.84-5.20); LYMPHOCYTES PERCENT AUTO 31 % (21-46); MONOCYTES ABSOLUTE AUTO 0.58 K/mm3 (0.16-1.47); MONOCYTES PERCENT AUTO 8 % (4-13); NEUTROPHILS ABSOLUTE AUTO 4.13 K/mm3 (1.96-9.15); NEUTROPHILS PERCENT AUTO 59 % (41-73); White Blood Cell Count 7.06 K/mm3 (4.00-11.30)
[2022-01-08 09:38] LABS: Albumin, Blood 2.6 g/dL (3.4-5.0); Albumin/Globulin Ratio 0.5 (0.8-1.8); Bilirubin, Total 1.5 mg/dL (0.1-1.0); Bun/Creatinine Ratio 13.9 (12.0-20.0); Calcium, Blood 9.7 mg/dL (8.5-10.1); Creatinine, Blood 0.93 mg/dL (0.40-1.00); Globulin, Blood 4.8 g/dL (2.2-4.0); Potassium, Blood 4.8 mmol/L (3.5-5.5); Total Protein, Blood 7.4 g/dL (6.4-8.2)
[2022-01-08 15:57] LABS: International Normalized Ratio 1.01; Prothrombin Time Results 10.6 Sec (9.7-11.5)
--- NOTE | 2022-01-08 16:16 | NUR ---
PATIENT ARRIVED TO ROOM 363 AT 1558. PATIENT'S SPOUSE AT THE BEDSIDE. ON 2L O2 VIA NC.
[2022-01-08 16:52] LABS: Creatine Kinase MB 1.8 ng/mL (0.0-3.6); Salicylate <1.7 mg/dL (2.8-20.0)
[2022-01-08 16:56] LABS: CPK Creatine Kinase 29 U/L (26-193); Creatine Kinase MB Index 6.2 (0.0-4.0)
[2022-01-08 16:58] LABS: Acetaminophen, Random <2.0 ug/mL (10.0-30.0)
[2022-01-08] MEDS ORDERED: TRAM50 PO (17:51)
[2022-01-08] MEDS ORDERED: OMEP20ER PO (17:53)
[2022-01-08] MEDS ORDERED: BUPR150ER PO (17:53)
[2022-01-08 19:26] LABS: U Amphetamine Screen Not Detected; U Barbituate Screen Not Detected; U Benzodiazapine Screen Not Detected; U Buprenorphine Screen Not Detected; U Cannabinoids Screen Not Detected; U Cocaine Screen Not Detected; U Methadone Screen Not Detected; U Methamphetamine Screen Not Detected; U Opiates Screen DETECTED; U Oxycodone Screen Not Detected; U Phencyclidine Screen Not Detected; U Propoxyphene Screen Not Detected
--- NOTE | 2022-01-08 19:44 | NUR ---
PATIENT IS ALERT AND ORIENTED. ON 2L O2 VIA NC. SBA TO THE BATHROOM. AT THE BEDSIDE. C/O ABDOMINAL PAIN, MEDICATED PER EMAR. DR. GUTIERREZ ORDERED A CLEAR LIQUID DIET.
[2022-01-08 20:49] LABS: Adenovirus F 40/41 Not Detected (NOT DETECT); Astrovirus Not Detected (NOT DETECT); Campylobacter Sp Not Detected (NOT DETECT); Cryptosporidium Not Detected (NOT DETECT); Cyclospora Cayetanensis Not Detected (NOT DETECT); E. Coli O157 Not Detected (NOT DETECT); Entamoeba Histolytica Not Detected (NOT DETECT); Enteroaggregative E. coli-EAEC Not Detected (NOT DETECT); Enteropathogenic E. coli-EPEC Not Detected (NOT DETECT); Enterotoxigenic E. coli-ETEC Not Detected (NOT DETECT); Giardia Lamblia Not Detected (NOT DETECT); Norovirus GI/GII Not Detected (NOT DETECT); Plesiomonas Shigelloides Not Detected (NOT DETECT); Rotavirus A Not Detected (NOT DETECT); Salmonella Sp Not Detected (NOT DETECT); Sapovirus Not Detected (NOT DETECT); Shiga Toxin-prod E. coli-STEC Not Detected (NOT DETECT); Shigella/Enteroin E. coli-EIEC Not Detected (NOT DETECT); Vibrio Cholerae Not Detected (NOT DETECT); Vibrio Sp Not Detected (NOT DETECT); Yersinia Enterocolitica Not Detected (NOT DETECT)
[2022-01-09 05:21] LABS: BASOPHILS ABSOLUTE AUTO 0.06 K/mm3 (0.00-0.23); BASOPHILS PERCENT AUTO 1 % (0-2); EOSINOPHILS ABSOLUTE AUTO 0.15 K/mm3 (0.00-0.68); EOSINOPHILS PERCENT AUTO 3 % (0-6); Hematocrit 38.5 % (33.0-51.0); Hemoglobin 12.1 g/dL (11.5-16.0); IMMATURE GRAN ABSOLUTE AUTO 0.01 K/mm3 (0.00-0.10); IMMATURE GRAN PERCENT AUTO 0 % (0-1); LYMPHOCYTES ABSOLUTE AUTO 1.95 K/mm3 (0.84-5.20); LYMPHOCYTES PERCENT AUTO 35 % (21-46); MONOCYTES ABSOLUTE AUTO 0.54 K/mm3 (0.16-1.47); MONOCYTES PERCENT AUTO 10 % (4-13); Mean Corpuscular HGB 30.6 pg (26.0-34.0); Mean Corpuscular HGB Conc 31.4 g/dL (31.5-36.5); Mean Platelet Volume 11.1 fL (9.1-12.4); NEUTROPHILS ABSOLUTE AUTO 2.82 K/mm3 (1.96-9.15); NEUTROPHILS PERCENT AUTO 51 % (41-73); Platelet Count 557 K/mm3 (150-400); RDW Coefficient Variation 16.4 % (11.7-14.2); RDW Standard Deviation 59.5 fL (35.1-46.3); Red Blood Cell Count 3.95 M/mm3 (3.80-5.20); White Blood Cell Count 5.53 K/mm3 (4.00-11.30)
[2022-01-09 05:58] LABS: Albumin, Blood 2.5 g/dL (3.4-5.0); Albumin/Globulin Ratio 0.6 (0.8-1.8); Bilirubin, Total 0.7 mg/dL (0.1-1.0); Bun/Creatinine Ratio 13.8 (12.0-20.0); Calcium, Blood 9.1 mg/dL (8.5-10.1); Creatinine, Blood 0.8 mg/dL (0.40-1.00); Magnesium, Blood 1.8 mg/dL (1.6-2.4); Phosphorus, Blood 3.7 mg/dL (2.5-4.9); Potassium, Blood 3.5 mmol/L (3.5-5.5); Total Protein, Blood 6.5 g/dL (6.4-8.2)
[2022-01-09 06:15] LABS: Mean Corpuscular Volume 98 fL (80-100)
--- NOTE | 2022-01-09 08:00 | NUR ---
pt sitting up in her chair reports epigastric pain 8/10, slow speech, Dr. Arrington in and states she's much more clear than yesterday, 2mg morphin give iv she reports good relief, currently on 1 liter o2, sats 96%, will continue to titrate, lungs are clear dim in bases, resp even and unlabored, no cough noted, but she reports an occ productive cough but doesn't know what color, hrr, no edema noted, ppp+2, cap refill<3sec, vs stable, afebrile, iv site to left fa, site is clear and patent, btx4, abd flat soft nontender, voids without diff, skin c/w/d, up ad edwardo in room, ann-marie, call light in reach.
--- NOTE | 2022-01-09 11:21 | NUR ---
iv is burning a bit, and slightly puffy, does flush, but replaced this was d/c'd intact, new 20G to rfa, x1 attempt, with good blood return, pt tolerated well, laying in bed at this time. call light in reach.
--- NOTE | 2022-01-09 18:17 | NUR ---
pt has been sitting up in a chair all day, medicated twice for pain, she seems like she is a bit foggy all day, no acute changes this shift. call light in reach.
--- NOTE | 2022-01-10 03:34 | NUR ---
PATIENT AWAKE AND MORE ALERT EARLY IN EVENING. OOB TO CHAIR AND BATHROOM PRIOR TO HS MEDS. VSS. TOLERATING IVF WELL. 99% ON 1 LITER VIA NC. AFTER RECEIVING HS MEDS INCLUDING REQUESTED PAIN MED (MORPHINE) FOR 8/10 ABD PAIN, PATIENT WAS MADE COMFORTABLE AND WENT TO SLEEP. DURING 3:00 ROUNDS, THIS RN FOUND PATIENT WITH 02 REMOVED AND LEGS AND BOTTOM HANGING OF THE SIDE OF THE BED WITH ONLY HER HEAD AND UPPER TORSO STILL ON MATTRESS. NAREN WAS VERY DIFFICULT TO AROUSE WITH YELLING AND STERNAL RUB BEFORE SHE GROGGILY WOKE UP AND ASKED WHAT WAS WRONG. NASAL CANULLA REPLACED AT ONE LITER FOR 100% IMMEDIATELY. VAPE CIGARETTE FOUND IN THE BED WAS LOCKED IN PATIENTS MEDICATION DRAWER OUTSIDE OF THE ROOM. VS REMAINED STABLE, AND PATIENT WAS ABLE TO GET LEGS AND BOTTOM BACK INTO THE BED. PRESENT WITHIN SECONDS WERE RT AND AUTOMOTIVE REFINISH TECHNICIAN FOR ASSESSMENT AND ASSISTANCE. NO FURTHER INCIDENCE OVERNIGHT
[2022-01-10 05:59] LABS: BASOPHILS ABSOLUTE AUTO 0.03 K/mm3 (0.00-0.23); BASOPHILS PERCENT AUTO 1 % (0-2); EOSINOPHILS ABSOLUTE AUTO 0.11 K/mm3 (0.00-0.68); EOSINOPHILS PERCENT AUTO 2 % (0-6); Hematocrit 35.8 % (33.0-51.0); Hemoglobin 11.2 g/dL (11.5-16.0); IMMATURE GRAN PERCENT AUTO 0 % (0-1); LYMPHOCYTES ABSOLUTE AUTO 1.76 K/mm3 (0.84-5.20); LYMPHOCYTES PERCENT AUTO 38 % (21-46); MONOCYTES ABSOLUTE AUTO 0.44 K/mm3 (0.16-1.47); MONOCYTES PERCENT AUTO 9 % (4-13); Mean Corpuscular HGB 30.9 pg (26.0-34.0); Mean Corpuscular HGB Conc 31.3 g/dL (31.5-36.5); Mean Corpuscular Volume 99 fL (80-100); Mean Platelet Volume 11.6 fL (9.1-12.4); NEUTROPHILS ABSOLUTE AUTO 2.35 K/mm3 (1.96-9.15); NEUTROPHILS PERCENT AUTO 50 % (41-73); Platelet Count 465 K/mm3 (150-400); RDW Coefficient Variation 16.2 % (11.7-14.2); RDW Standard Deviation 59.2 fL (35.1-46.3); Red Blood Cell Count 3.62 M/mm3 (3.80-5.20); White Blood Cell Count 4.69 K/mm3 (4.00-11.30)
[2022-01-10 06:22] LABS: Albumin, Blood 2.4 g/dL (3.4-5.0); Albumin/Globulin Ratio 0.6 (0.8-1.8); Bilirubin, Total 0.3 mg/dL (0.1-1.0); Bun/Creatinine Ratio 9.9 (12.0-20.0); Calcium, Blood 8.9 mg/dL (8.5-10.1); Creatinine, Blood 0.91 mg/dL (0.40-1.00); Globulin, Blood 3.8 g/dL (2.2-4.0); Magnesium, Blood 1.8 mg/dL (1.6-2.4); Potassium, Blood 3.4 mmol/L (3.5-5.5); Total Protein, Blood 6.2 g/dL (6.4-8.2)
--- NOTE | 2022-01-10 09:00 | NUR ---
pt very sleepy this am, did not wake through v.s., a/ox3, when she did wake, she states she hasn't slept for a few days and was just very tired, night nurse reported she felt like she was to sedated, lungs are clear dim in bases, resp even and unlabored, no cough noted, hrr, voids without diff, skin c/w/d, mamariya, ann-marie, call light in reach.
--- NOTE | 2022-01-10 10:50 | NUR ---
Dr. Arrington was in to speak to the pt, will be discharging today. family in with pt.
[2022-01-10] MEDS ORDERED: CHOLESTYRAMI239.4 G1 PO (11:03)
[2022-01-10] MEDS ORDERED: Norco 7.5-3251 EACH PO (11:03)
[2022-01-10] MEDS ORDERED: CREON DR 12,001 EACH PO (11:04)
[2022-01-10] MEDS ORDERED: ONDA4ODT MM (11:04)
[2022-01-10] MEDS ORDERED: SPIRIVA RESPIMAT4 G3 INH (11:05)
--- NOTE | 2022-01-10 12:01 | NUR ---
pt has been discharged to home, iv removed intact, went over discharge instructions with her and her family she verbalized understanding, new scripts were faxed to [facility], she has a hard copy of the [facility] script in her discharge packet, she was offered a shower but declined. left via wheelchair with engineering model maker and family in attendence, with all her belongings.
[2022-01-11 07:08] LABS: HBSAG SCREEN Negative (Negative); HCV AB 0.1 (0.0-0.9); HEP A AB, IGM Negative (Negative); HEP B CORE AB, IGM Negative (Negative)
== END 2022-01-10 11:59 | disposition home or self-care (01) | DRG 445 ==
LOC: ER 08:19 → MEDS 14:27
PROVIDERS: Physician Assistant; ADMIT Family Medicine
DX: K83.1 Obstruction of bile duct (principal); K86.1 Other chronic pancreatitis; R09.02 Hypoxemia; R74.01 Elevation of levels of liver transaminase levels; J44.9 Chronic obstructive pulmonary disease, unspecified; G89.29 Other chronic pain; M54.9 Dorsalgia, unspecified; F32.A Depression, unspecified; K70.30 Alcoholic cirrhosis of liver without ascites; F17.210 Nicotine dependence, cigarettes, uncomplicated; M19.90 Unspecified osteoarthritis, unspecified site; E55.9 Vitamin D deficiency, unspecified; K72.90 Hepatic failure, unspecified without coma; G62.9 Polyneuropathy, unspecified; Z96.642 Presence of left artificial hip joint; Z90.710 Acquired absence of both cervix and uterus; Z90.722 Acquired absence of ovaries, bilateral; Z98.890 Other specified postprocedural states; Z90.89 Acquired absence of other organs; Z88.6 Allergy status to analgesic agent; Z79.899 Other long term (current) drug therapy
CPT/HCPCS: 36415; 71046; 74181; 80053; 80074; 82010; 82140; 82550; 82553; 82977; 83605; 83690; 83735; 84100; 85025; 85610; 85730; 86301; 87507; 94640; 94664; 94760; 96374; 96375; 96376; 99285-25; A9270; C9113; G0480; J0696; J1170; J1644; J2270; J2405; J7030

== ENCOUNTER → 2022-05-11 | Outpatient (CLI) | payer OTHER ==
[~2022-05-11] MED LIST changes: +CEPH500 PO; +CHOLESTYRAMI239.4 G1 PO; +CREON DR 12,001 EACH PO; +Norco 7.5-3251 EACH PO; +ONDA4ODT MM; +OXAYDO5 M1 PO; +SPIRIVA RESPIMAT4 G3 INH
[2022-05-11 09:29] LABS: BASOPHILS ABSOLUTE AUTO 0.04 K/mm3 (0.00-0.23); BASOPHILS PERCENT AUTO 1 % (0-2); EOSINOPHILS PERCENT AUTO 1 % (0-6); Hematocrit 38.7 % (33.0-51.0); Hemoglobin 12.5 g/dL (11.5-16.0); IMMATURE GRAN ABSOLUTE AUTO 0.02 K/mm3 (0.00-0.10); IMMATURE GRAN PERCENT AUTO 0 % (0-1); LYMPHOCYTES ABSOLUTE AUTO 1.79 K/mm3 (0.84-5.20); LYMPHOCYTES PERCENT AUTO 25 % (21-46); MONOCYTES ABSOLUTE AUTO 0.49 K/mm3 (0.16-1.47); MONOCYTES PERCENT AUTO 7 % (4-13); Mean Corpuscular HGB 31.9 pg (26.0-34.0); Mean Corpuscular HGB Conc 32.3 g/dL (31.5-36.5); Mean Corpuscular Volume 99 fL (80-100); Mean Platelet Volume 10.3 fL (9.1-12.4); NEUTROPHILS ABSOLUTE AUTO 4.78 K/mm3 (1.96-9.15); NEUTROPHILS PERCENT AUTO 66 % (41-73); Platelet Count 300 K/mm3 (150-400); RDW Standard Deviation 54.5 fL (35.1-46.3); Red Blood Cell Count 3.92 M/mm3 (3.80-5.20); White Blood Cell Count 7.22 K/mm3 (4.00-11.30)
[2022-05-11 09:49] LABS: Albumin/Globulin Ratio 0.8 (0.8-1.8); Bilirubin, Total 0.2 mg/dL (0.1-1.0); Calcium, Blood 9.1 mg/dL (8.5-10.1); Creatinine, Blood 1.15 mg/dL (0.40-1.00); Globulin, Blood 3.9 g/dL (2.2-4.0); Potassium, Blood 4.9 mmol/L (3.5-5.5); Thyroid Stimulating Hormone 0.834 uIU/mL (0.360-4.800); Total Protein, Blood 6.9 g/dL (6.4-8.2)
== END ==
LOC: LAB SHORT 09:26 → LAB 09:26
PROVIDERS: Physician Assistant
DX: R53.83 Other fatigue (principal)
CPT/HCPCS: 80053; 84443; 85025

== ENCOUNTER 2022-11-02 20:01 | Inpatient (IN) | payer OTHER ==
[~2022-11-02] VITALS: Ht 167.6 cm; Wt 78.0 kg
[2022-11-02 20:41] LABS: BASOPHILS ABSOLUTE AUTO 0.05 K/mm3 (0.00-0.23); BASOPHILS PERCENT AUTO 0 % (0-2); EOSINOPHILS ABSOLUTE AUTO 0.01 K/mm3 (0.00-0.68); EOSINOPHILS PERCENT AUTO 0 % (0-6); IMMATURE GRAN ABSOLUTE AUTO 0.09 K/mm3 (0.00-0.10); IMMATURE GRAN PERCENT AUTO 1 % (0-1); LYMPHOCYTES ABSOLUTE AUTO 0.67 K/mm3 (0.84-5.20); LYMPHOCYTES PERCENT AUTO 4 % (21-46); MONOCYTES ABSOLUTE AUTO 0.67 K/mm3 (0.16-1.47); MONOCYTES PERCENT AUTO 4 % (4-13); Mean Corpuscular HGB 32.1 pg (26.0-34.0); Mean Corpuscular Volume 100 fL (80-100); Mean Platelet Volume 10.4 fL (9.1-12.4); NEUTROPHILS ABSOLUTE AUTO 17.12 K/mm3 (1.96-9.15); NEUTROPHILS PERCENT AUTO 92 % (41-73); Platelet Count 344 K/mm3 (150-400); RDW Coefficient Variation 15.5 % (11.7-14.2); RDW Standard Deviation 57.8 fL (35.1-46.3); Red Blood Cell Count 4.99 M/mm3 (3.80-5.20); White Blood Cell Count 18.61 K/mm3 (4.00-11.30)
[2022-11-02 21:00] LABS: Albumin, Blood 3.5 g/dL (3.4-5.0); Albumin/Globulin Ratio 0.9 (0.8-1.8); Bilirubin, Total 0.4 mg/dL (0.1-1.0); Bun/Creatinine Ratio 14.9 (12.0-20.0); Creatinine, Blood 2.81 mg/dL (0.40-1.00); Globulin, Blood 4.1 g/dL (2.2-4.0); Potassium, Blood 4.3 mmol/L (3.5-5.5); Total Protein, Blood 7.6 g/dL (6.4-8.2)
[2022-11-02 21:02] LABS: Base Excess Venous -8.6 mmol/L; Bicarbonate Venous 16.9 mmol/L (24.0-30.0); PCO2 Venous 57.3 mmHg (38-42)
[2022-11-02 21:03] LABS: pH Blood Venous 7.16 (7.34-7.37)
[2022-11-02 21:54] LABS: Influenza A, PCR NEGATIVE (NEGATIVE); Influenza B, PCR NEGATIVE (NEGATIVE); Resp Syncytial Virus, PCR NEGATIVE (NEGATIVE); SARS-Cov-2 (COVID-19) PCR, MMC NEGATIVE (NEGATIVE)
[2022-11-02 22:04] LABS: Prothrombin Time Results 10.5 Sec (9.7-11.5)
[2022-11-02 23:08] LABS: Base Excess Venous -7.4 mmol/L; Bicarbonate Venous 17.5 mmol/L (24.0-30.0)
[2022-11-02 23:10] LABS: pH Blood Venous 7.13 (7.34-7.37)
[2022-11-02 23:29] LABS: Source, Urine Clean Catch
[2022-11-02 23:36] LABS: Bilirubin, Urine Neg (Neg); Blood, Urine 2+ (Neg); Glucose Qualitative, Urine Neg (Neg); Ketones, Urine Neg (Neg); Leukocyte Esterase, Urine 1+ (Neg); Nitrite, Urine Neg (Neg); Protein, Urine 2+ (Neg); Specific Gravity, Urine 1.025 (1.003-1.022); Urobilinogen, Urine NORM (Normal)
[2022-11-02 23:53] LABS: Appearance, Urine Clear (Clear); Color, Urine Yellow (P-Yellow)
[2022-11-02 23:56] LABS: Amorphous Light (0-Heavy); Bacteria Few /hpf; Red Blood Cells, Urine 0-2 /hpf (0-2); Squamous Epithelial Cells Few /hpf (Few)
[2022-11-03] VITALS (77 sets, daily range): BP systolic 77–132; BP diastolic 37–102
[2022-11-03 01:16] LABS: Source, Urine Foley catheter
[2022-11-03 01:19] LABS: Bilirubin, Urine Neg (Neg); Blood, Urine 3+ (Neg); Glucose Qualitative, Urine Neg (Neg); Ketones, Urine Neg (Neg); Leukocyte Esterase, Urine Neg (Neg); Nitrite, Urine Neg (Neg); Protein, Urine 2+ (Neg); Urobilinogen, Urine NORM (Normal)
[2022-11-03 01:26] LABS: Appearance, Urine Clear (Clear); Color, Urine Yellow (P-Yellow)
[2022-11-03 01:28] LABS: Amorphous Light (0-Heavy); Bacteria Few /hpf; Red Blood Cells, Urine 0-2 /hpf (0-2); Squamous Epithelial Cells Few /hpf (Few); White Blood Cells, Urine 0-2 /hpf (0-5)
[2022-11-03 01:36] LABS: U Amphetamine Screen Not Detected; U Barbituate Screen Not Detected; U Benzodiazapine Screen Not Detected; U Buprenorphine Screen Not Detected; U Cannabinoids Screen Not Detected; U Cocaine Screen Not Detected; U Methadone Screen Not Detected; U Methamphetamine Screen Not Detected; U Opiates Screen DETECTED; U Oxycodone Screen Not Detected; U Phencyclidine Screen Not Detected; U Propoxyphene Screen Not Detected
--- NOTE | 2022-11-03 02:31 | NUR ---
ASSUMED CARE PT ARRIVED ON UNIT AT 0045. OBTUNDED, BUT AROUSES TO VERBAL STIMULI AND IS ABLE TO APPROPRIATELY ANSWER ORIENTATION QUESTIONS (REQUIRING SEVERAL PROMPTS). SPO2 >92% ON BIPAP; MAP <65; HR 80-90'S. LR INFUSING PER ORDER. DR LAW CALLED ABOUT POSITIVE OPIATES ON TOX SCREEN W/ ORDERS FOR NARCAN; NARCAN HAD NO VISIBLE EFFECT. MOTTLED IN BILATERAL EXTREMITIES. WASHINGTON CATHETER PATENT AND DRAINING TO GRAVITY.
--- NOTE | 2022-11-03 03:33 | NUR ---
UPDATE PT BECAME HYPOTENSIVE W/ SATS DROPPING INTO THE MID 80'S. RT AT BEDSIDE WITH BLEED IN INCREASED TO 5L VIA BIPAP. DR LAW CALLED W/ LEVOPHED ORDERED.
[2022-11-03 03:50] LABS: BASOPHILS ABSOLUTE AUTO 0.05 K/mm3 (0.00-0.23); BASOPHILS PERCENT AUTO 0 % (0-2); EOSINOPHILS ABSOLUTE AUTO 0.01 K/mm3 (0.00-0.68); EOSINOPHILS PERCENT AUTO 0 % (0-6); Hematocrit 43.5 % (33.0-51.0); Hemoglobin 13.7 g/dL (11.5-16.0); IMMATURE GRAN ABSOLUTE AUTO 0.37 K/mm3 (0.00-0.10); IMMATURE GRAN PERCENT AUTO 2 % (0-1); LYMPHOCYTES ABSOLUTE AUTO 0.79 K/mm3 (0.84-5.20); LYMPHOCYTES PERCENT AUTO 4 % (21-46); MONOCYTES ABSOLUTE AUTO 0.96 K/mm3 (0.16-1.47); MONOCYTES PERCENT AUTO 5 % (4-13); Mean Corpuscular HGB 32.2 pg (26.0-34.0); Mean Corpuscular HGB Conc 31.5 g/dL (31.5-36.5); Mean Corpuscular Volume 102 fL (80-100); Mean Platelet Volume 10.6 fL (9.1-12.4); NEUTROPHILS ABSOLUTE AUTO 18.16 K/mm3 (1.96-9.15); NEUTROPHILS PERCENT AUTO 89 % (41-73); Platelet Count 272 K/mm3 (150-400); RDW Coefficient Variation 15.6 % (11.7-14.2); RDW Standard Deviation 58.8 fL (35.1-46.3); Red Blood Cell Count 4.26 M/mm3 (3.80-5.20); White Blood Cell Count 20.34 K/mm3 (4.00-11.30)
[2022-11-03 04:08] LABS: Albumin, Blood 2.5 g/dL (3.4-5.0); Albumin/Globulin Ratio 0.7 (0.8-1.8); Bilirubin, Total 0.5 mg/dL (0.1-1.0); Bun/Creatinine Ratio 15.4 (12.0-20.0); Calcium, Blood 8.2 mg/dL (8.5-10.1); Creatinine, Blood 2.66 mg/dL (0.40-1.00); Globulin, Blood 3.4 g/dL (2.2-4.0); Potassium, Blood 4.2 mmol/L (3.5-5.5); Total Protein, Blood 5.9 g/dL (6.4-8.2)
--- NOTE | 2022-11-03 05:26 | NUR ---
SHIFT SUMMARY P[T REMAINS OBTUNDED. NO OBVIOUS NEURO CHANGES, IS STILL ABLE TO ANSWER ORIENTATION QUESTIONS APPROPRIATELY; REQUIRING SEVERAL PROMPTS. LEVOPHED AND LR INFUSING (SEE FLOWSHEET) W/ MAP >65; SPO2 >92% ON BIPAP; HR IN THE 80'S. WASHINGTON CATHETER IS PATENT AND DRAINING TO GRAVITY. NO ACUTE EVENTS EXCEPT FOR THOSE MENTIONED IN PREVIOUS NOTE/S
[2022-11-03 10:45] LABS: Base Excess Venous -7.4 mmol/L; Bicarbonate Venous 18.3 mmol/L (24.0-30.0); PCO2 Venous 49.1 mmHg (38-42); pH Blood Venous 7.22 (7.34-7.37)
[2022-11-03] MEDS ORDERED: BUSP10 PO (15:11)
[2022-11-03] MEDS ORDERED: CHOLP PO (15:12)
[2022-11-03] MEDS ORDERED: CYMBALTA60 M1 PO (15:13)
[2022-11-03] MEDS ORDERED: Norco 5-325 MG PO (15:14)
[2022-11-03] MEDS ORDERED: CREON 36000 UNIT PO (15:15)
[2022-11-03] MEDS ORDERED: Zestril30 MG PO (15:16)
[2022-11-03] MEDS ORDERED: OMEP20ER PO (15:17)
[2022-11-03] MEDS ORDERED: LYRICA200 M1 PO (15:18)
--- NOTE | 2022-11-03 16:37 | NUR ---
SHIFT SUMMARY NO ACUTE CHANGES THIS SHIFT. PT REMAINS LETHARGIC, BUT IS MORE ALERT THIS AFTERNOON. PT ABLE TO ANSWER SOME SIMPLE QUESTIONS, BUT IS CONFUSED AT TIMES. PT QUICKLY FALLS BACK TO SLEEP WHEN UNDISTRUBED. PT WITH SHORT BREAK FROM BIPAP ON 5L O2 NC THIS AFTERNOON. PT CURRENTLY ON BIPAP 30/12, WITH 5L O2 BLEED IN. PICC TO RIVERA PLACED THIS SHIFT. LEVOPHED INFUSING AT 8 MCG/MIN. WASHINGTON REMAINS IN PLACE WITH PALE YELLOW URINE OUTPUT NOTED. VITAL SIGNS STABLE. PT SPOUSE AT BEDSIDE MOST OF THIS SHIFT. UPDATED FOR PLANS TO NOT TAKE PT FOR DRAIN PLACEMENT AT THIS TIME. WILL CONTINUE TO MONITOR AND REPORT OFF TO ONCOMING RN.
--- NOTE | 2022-11-03 19:38 | NUR ---
ASSUMED CARE PT IS OBTUNDED AND AROUSES TO VOICE MUCH EASIER THAN PREVIOUS NIGHT FOR THIS RN. PT IS ABLE TO ANSWER ORIENTATION QUESTIONS APPROPRIATELY (REQUIRING PROMPTING AND CLARIFICATION). PT IS CURRENTLY ON BIPAP. SPO2 >92%; MAP >65, LEVOPHED INFUSING; HR IN THE 80-90'S. WASHINGTON CATHETER PATENT AND DRAINING TO GRAVITY.
--- NOTE | 2022-11-03 19:58 | NUR ---
UPDATE CALLED TO CLARIFY CODE STATUS THERE WAS SOME CONFUSION AND DISCUSSION ABOUT HOW THE WAS POSSIBLY OK W/ INTUBATION THE PREVIOUS NIGHT. CLARIFIED THAT THE WAS PREVIOUSLY AGAINST INTUBATION DURING THE COVID ERA, BUT BELIEVED THAT HIS WOULD BE OK W/ IT NOW. HE WISHES HER TO BE FULL CODE AND TO DISCUSS W/ WHEN SHE BECOMES MORE ALERT. ÁLVARO LEBLANC VERIFIED CODE STATUS WITH THIS RN. DR LAW CALLED W/ ORDERS TO CHANGE STATUS TO FULL CODE AND TO INFORM DAYSHIFT ABOUT HAVING PALLIATIVE DISCUSS CODE STATUS MORE IN DEPTH W/ THE TOMORROW.
[2022-11-04] VITALS (81 sets, daily range): BP systolic 86–137; BP diastolic 54–119
[2022-11-04 03:45] LABS: Bicarbonate Venous 19.9 mmol/L (24.0-30.0); PCO2 Venous 46.8 mmHg (38-42); pH Blood Venous 7.28 (7.34-7.37)
[2022-11-04 03:56] LABS: BASOPHILS ABSOLUTE AUTO 0.03 K/mm3 (0.00-0.23); BASOPHILS PERCENT AUTO 0 % (0-2); EOSINOPHILS ABSOLUTE AUTO 0.07 K/mm3 (0.00-0.68); EOSINOPHILS PERCENT AUTO 0 % (0-6); IMMATURE GRAN ABSOLUTE AUTO 0.07 K/mm3 (0.00-0.10); IMMATURE GRAN PERCENT AUTO 0 % (0-1); LYMPHOCYTES PERCENT AUTO 12 % (21-46); MONOCYTES ABSOLUTE AUTO 0.78 K/mm3 (0.16-1.47); MONOCYTES PERCENT AUTO 5 % (4-13); Mean Corpuscular HGB 31.5 pg (26.0-34.0); Mean Corpuscular HGB Conc 32.4 g/dL (31.5-36.5); Mean Platelet Volume 10.4 fL (9.1-12.4); NEUTROPHILS ABSOLUTE AUTO 13.12 K/mm3 (1.96-9.15); NEUTROPHILS PERCENT AUTO 82 % (41-73); Platelet Count 264 K/mm3 (150-400); RDW Coefficient Variation 15.2 % (11.7-14.2); RDW Standard Deviation 54.6 fL (35.1-46.3); Red Blood Cell Count 3.81 M/mm3 (3.80-5.20); White Blood Cell Count 15.97 K/mm3 (4.00-11.30)
[2022-11-04 03:58] LABS: Mean Corpuscular Volume 97 fL (80-100)
[2022-11-04 04:04] LABS: Albumin, Blood 2.3 g/dL (3.4-5.0); Albumin/Globulin Ratio 0.7 (0.8-1.8); Bilirubin, Total 0.3 mg/dL (0.1-1.0); Bun/Creatinine Ratio 16.9 (12.0-20.0); Calcium, Blood 8.2 mg/dL (8.5-10.1); Creatinine, Blood 2.25 mg/dL (0.40-1.00); Globulin, Blood 3.2 g/dL (2.2-4.0); Potassium, Blood 3.1 mmol/L (3.5-5.5); Total Protein, Blood 5.5 g/dL (6.4-8.2)
--- NOTE | 2022-11-04 05:45 | NUR ---
SHIFT SUMMARY PT REMAINS SOMNULENT, BUT IS MORE ALERT. PT HAD 4 LOOSE BROWN BOWEL MOVEMENTS. SPO2 >90% W/ BIPAP. MAP >65; LEVOPHED INFUSING. HR IN THE 70-80'S. WASHINGTON CATHETER IS PATENT AND DRAINING TO GRAVITY. NO ACUTE EVENTS EXCEPT FOR THOSE LISTED IN PREVIOUS NOTES.
[2022-11-04] MEDS ORDERED: HYDR1TAB94 PO ×2 (17:15→17:47)
--- NOTE | 2022-11-04 17:33 | NUR ---
SHIFT SUMMARY PT RESTING COMFORTABLY IN BED. PT ANSWERS QUESTIONS APPROPRIATELY AND FOLLOWS COMMANDS. PT UP TO COMMODE FOR BM. WASHINGTON PATENT AND DRAINGING TO GRAVITY. HR 80-90'S, BP STABLE, PT TITRATED OFF LEVOPHED TODAY. PT ABLE TO TOLERATE 3-4 HOUR BREAKS FROM BIPAP WITH 02 VIA NC AT 4 LPM IN BETWEEN. O2 > 92%. WILL CONTINUE TO MONITOR AND GIVE REPORT TO ONCOMING RN.
[2022-11-04] MEDS ORDERED: CREON DR 12,001 EACH PO (17:51)
--- NOTE | 2022-11-04 19:15 | NUR ---
ASSUMED CARE PT IS A&O X3-4; PT HAS SOME CONFUSION AND APPEARS TO FIND DIFFICULTY IN MAINTAINING FOCUS. VSS W/ PT ON 3L NC; AFEBRILE. PT ASKS QUESTIONS ABOUT CARE PLAN; ANXIOUS AT TIMES. NO C/O OF CP, SOB (OUT OF NORM), NAUSEA, NUMBNESS, OR TINGLING; HAS C/O OF GASINESS (SIMETHICONE ORDERED). WASHINGTON CATHETER PATENT AND DRAINING TO GRAVITY.
--- NOTE | 2022-11-04 20:11 | NUR ---
UPDATE CONSENT FORM SIGNED FOR RELEASE OF INFORMATION. COMMUNITY MENT[employer] WORKER FAXED SHEET TO [facility].
[2022-11-05 00:07] VITALS: BP 99/62
[2022-11-05 04:00] VITALS: BP 109/71
[2022-11-05 04:28] LABS: BASOPHILS ABSOLUTE AUTO 0.02 K/mm3 (0.00-0.23); BASOPHILS PERCENT AUTO 0 % (0-2); EOSINOPHILS PERCENT AUTO 1 % (0-6); Hematocrit 34.9 % (33.0-51.0); Hemoglobin 11.6 g/dL (11.5-16.0); IMMATURE GRAN ABSOLUTE AUTO 0.02 K/mm3 (0.00-0.10); IMMATURE GRAN PERCENT AUTO 0 % (0-1); LYMPHOCYTES ABSOLUTE AUTO 2.28 K/mm3 (0.84-5.20); LYMPHOCYTES PERCENT AUTO 24 % (21-46); MONOCYTES ABSOLUTE AUTO 0.58 K/mm3 (0.16-1.47); MONOCYTES PERCENT AUTO 6 % (4-13); Mean Corpuscular HGB 31.9 pg (26.0-34.0); Mean Corpuscular HGB Conc 33.2 g/dL (31.5-36.5); Mean Corpuscular Volume 96 fL (80-100); Mean Platelet Volume 10.6 fL (9.1-12.4); NEUTROPHILS ABSOLUTE AUTO 6.65 K/mm3 (1.96-9.15); NEUTROPHILS PERCENT AUTO 69 % (41-73); Platelet Count 233 K/mm3 (150-400); RDW Coefficient Variation 15.3 % (11.7-14.2); Red Blood Cell Count 3.64 M/mm3 (3.80-5.20); White Blood Cell Count 9.65 K/mm3 (4.00-11.30)
[2022-11-05 04:57] LABS: Albumin, Blood 2.3 g/dL (3.4-5.0); Albumin/Globulin Ratio 0.7 (0.8-1.8); Bilirubin, Total 0.3 mg/dL (0.1-1.0); Bun/Creatinine Ratio 17.7 (12.0-20.0); Calcium, Blood 8.2 mg/dL (8.5-10.1); Creatinine, Blood 1.75 mg/dL (0.40-1.00); Globulin, Blood 3.1 g/dL (2.2-4.0); Potassium, Blood 3.2 mmol/L (3.5-5.5); Total Protein, Blood 5.4 g/dL (6.4-8.2)
--- NOTE | 2022-11-05 06:47 | NUR ---
SHIFT SUMMARY PATIENT ARRIVED TO PCU 3 FROM ICU VIA WHEELCHAIR. SHE IS ABLE TO TRANSFER WITH 1 PERSON ASSIST. PATIENT ALERT AND ORIENTED X3-4. MEDICATED PER EMAR FOR PAIN. PATIENT HAD NO COMPLAINTS OF SHORTNESS OF BREATH. ABLE TO MAINTAIN O2>90 ON ROOM AIR WHILE AWAKE, 2 LITERS O2 VIA NC WHILE SLEEPING. VITAL SIGNS HAVE BEEN STABLE. WASHINGTON CATHETER REMOVED UPON TRANSFER, SHE HAS YET TO VOID. WILL CONTINUE TO MONITOR. CALL LIGHT WITHIN REACH.
[2022-11-05 07:38] VITALS: BP 111/89
--- NOTE | 2022-11-05 09:02 | NUR ---
Bladder scan done at time of bedside report. Pt had just been up to bedside commode and had a bowel movement, but has not been able to void since removal of Lewis, per report. Bladder scan shows 452 cc. Pt is going to drink her coffee and have breakfast and try again to void. If unable, plan to straight catheterize. This was discussed with the patient and she is agreeable. She says that she feels like her bladder is full, but not too uncomfortable.
--- NOTE | 2022-11-05 10:03 | NUR ---
On BSC, attempting to urinate.
--- NOTE | 2022-11-05 10:52 | NUR ---
Attempted to call the pt's son, Jackson to give an update. No answer, only voice mail recording.
[2022-11-05 13:53] VITALS: BP 120/84
--- NOTE | 2022-11-05 14:14 | NUR ---
PT O2 WENT FROM 91% TO 85% ON ROOM AIR. PATIENT WAS LAYING IN BED TALKING TO HER ; DROWSY. OXYGEN VIA NASAL CANULA AT 2% WAS STARTED. PT WAS SAT UP IN THE BED AND FOLLOWED INSTRUCTIONS ON DEEP BREATHING. O2 CAME UP TO 91%.
--- NOTE | 2022-11-05 17:20 | NUR ---
PT STILL UNABLE TO URINATE. BLADDER SCAN SHOWED 520CC. STRAIGHT CATH PRODUCED 400CC YELLOW URINE. PT TOLERATED WELL. PT GOT BACK INTO THE CHAIR AFTER. PT AT 99% O2 AT 2L NASAL CANULA. REMOVED OXYGEN WHILE IN CHAIR.
[2022-11-05 20:51] VITALS: BP 108/82
[2022-11-05 23:42] VITALS: BP 121/90
[2022-11-06 03:00] LABS: Source, Urine Foley catheter
[2022-11-06 03:21] VITALS: BP 118/76
[2022-11-06 03:23] LABS: Bilirubin, Urine Neg (Neg); Blood, Urine Neg (Neg); Glucose Qualitative, Urine Neg (Neg); Ketones, Urine Neg (Neg); Leukocyte Esterase, Urine Neg (Neg); Nitrite, Urine Neg (Neg); Protein, Urine 2+ (Neg); Urobilinogen, Urine NORM (Normal)
[2022-11-06 03:34] LABS: Appearance, Urine Clear (Clear); Color, Urine Yellow (P-Yellow)
[2022-11-06 03:36] LABS: Bacteria Few /hpf; Red Blood Cells, Urine 0-2 /hpf (0-2); Squamous Epithelial Cells Few /hpf (Few); White Blood Cells, Urine 0-2 /hpf (0-5)
[2022-11-06 06:03] LABS: BASOPHILS ABSOLUTE AUTO 0.02 K/mm3 (0.00-0.23); BASOPHILS PERCENT AUTO 0 % (0-2); EOSINOPHILS PERCENT AUTO 1 % (0-6); Hematocrit 34.5 % (33.0-51.0); Hemoglobin 11.5 g/dL (11.5-16.0); IMMATURE GRAN ABSOLUTE AUTO 0.02 K/mm3 (0.00-0.10); IMMATURE GRAN PERCENT AUTO 0 % (0-1); LYMPHOCYTES ABSOLUTE AUTO 2.15 K/mm3 (0.84-5.20); LYMPHOCYTES PERCENT AUTO 29 % (21-46); MONOCYTES ABSOLUTE AUTO 0.47 K/mm3 (0.16-1.47); MONOCYTES PERCENT AUTO 6 % (4-13); Mean Corpuscular HGB Conc 33.3 g/dL (31.5-36.5); Mean Corpuscular Volume 96 fL (80-100); Mean Platelet Volume 10.6 fL (9.1-12.4); NEUTROPHILS ABSOLUTE AUTO 4.68 K/mm3 (1.96-9.15); NEUTROPHILS PERCENT AUTO 63 % (41-73); Platelet Count 221 K/mm3 (150-400); RDW Coefficient Variation 15.4 % (11.7-14.2); RDW Standard Deviation 54.9 fL (35.1-46.3); Red Blood Cell Count 3.59 M/mm3 (3.80-5.20); White Blood Cell Count 7.44 K/mm3 (4.00-11.30)
[2022-11-06 06:22] LABS: Albumin, Blood 2.1 g/dL (3.4-5.0); Albumin/Globulin Ratio 0.7 (0.8-1.8); Bilirubin, Total 0.3 mg/dL (0.1-1.0); Bun/Creatinine Ratio 16.5 (12.0-20.0); Creatinine, Blood 1.27 mg/dL (0.40-1.00); Potassium, Blood 2.9 mmol/L (3.5-5.5); Total Protein, Blood 5.1 g/dL (6.4-8.2)
--- NOTE | 2022-11-06 06:53 | NUR ---
SHIFT SUMMARY PATIENT ALERT AND ORIENTED X 3-4. HAD NO COMPLAINTS OF PAIN OR SHORTNESS OF BREATH. REQUIRED 2 LITERS SUPPLEMENTAL OXYGEN WHILE SLEEPING TO MAINTAIN SPO2 >90%. VITAL SIGNS STABLE. PATIENT WAS STILL UNABLE TO VOID, WASHINGTON CATHETER PLACED FOR RETENTION. WILL CONTINUE TO MONITOR. CALL LIGHT WITHIN REACH.
[2022-11-06 07:19] VITALS: BP 106/78
[2022-11-06 10:50] VITALS: BP 111/79
--- NOTE | 2022-11-06 10:52 | NUR ---
TRANSFER PT TRANSFERED FROM PCU TO ROOM 329. ALL BELONGINGS TAKEN WITH PATIENT. PT TRANSFERING WELL WITH NURSING STAFF TODAY. INC OF STOOL RELATED TO URGENCY. WASHINGTON PATENT AND DRAINING. MEDICATED FOR PAIN PER EMAR.
--- NOTE | 2022-11-06 11:22 | NUR ---
PT TRANSFERED FROM PCU ALERT AND ORIENTED X4 WITH SOME DROWSINESS. SLOW MOVEMENT AND DELAYED RESPONSE TIME. WASHINGTON CATH. PER REPORT, 2XPERSON ASSIST. REMOVED CONTINUOUS PULSE OX FROM LEFT POINTER FINGER. SKIN UNDER IS WHITE AND IN THE SHAPE OF THE PULSE OX. GOOD CAP REFILL TO SURROUNDING SKIN. PICTURE IN CHART REPORT RECIEVED FROM KARMA NUNES
[2022-11-06 15:18] VITALS: BP 104/68
--- NOTE | 2022-11-06 17:25 | NUR ---
SHIFT SUMMARY- PT IS ALERT AND ORIENTED X4. DROWSY. STAND BY ASSIST TO THE BATHROOM. FAMILY AT BEDSIDE THIS MORNING. PT REPORTED HAVING GAS AND PAIN, TREATED PER EMAR. NO ACUTE CHANGES THIS SHIFT.
[2022-11-06 19:50] VITALS: BP 128/89
[2022-11-07 02:22] VITALS: BP 122/84
[2022-11-07 07:14] VITALS: BP 121/80
--- NOTE | 2022-11-07 07:34 | NUR ---
VSS ON RA, AO, SBA WITH WALKER, CALLS APPROPRIATELY. W[place] IN PLACE FOR RETENTION, PATENT AND ADEQUATE OUTPUT. NORCO FOR PAIN. ZOCYN ADMINISTERED Q6. ASSESSMENT CONSISTENT WITH PREVIOUS REPORT.
[2022-11-07 16:26] VITALS: BP 124/82
[2022-11-07] MEDS ORDERED: CEFU250T47 PO (19:33)
[2022-11-07] MEDS ORDERED: SPIRIVA RESPIMAT4 G3 INH (19:36)
[2022-11-07] MEDS ORDERED: LACT PO (19:37)
--- NOTE | 2022-11-07 19:52 | NUR ---
PT HAS BEEN STABLE THIS SHIFT. PLAN TO DC HOME TONIGHT WHEN OFF WORK. MEDICATIONS FAXED TO PT PHARMACY TO BE PICKED UP TOMORROW. FIRST DOSES GIVEN THIS EVENING. CANDICE DC'D. NEGRO CHARGE NURSE TO DC PICC PRIOR TO DC. FELIX CHRISTIANSON'D [phone], NO VOID YET. MEDICATED FOR PAIN PRIOR TO DC. REPORT GIVEN TO NEGRO PARADA.
--- NOTE | 2022-11-07 21:01 | NUR ---
11/07/2099 Patient given PM meds as ordered. PICC line DC'd, full 48cm removed, drsg applied. Teaching on site care given. Pt given information on medications to be taken at home. Son will cone picker new perscriptions tommorrow. Information on new medications and present illness handouts given. Discussed recovery care and gradual increase of activity as tolerated. Pt was discharged at 2105 via W/C with all belongings. Son and Patient deny any questions at this time.
== END 2022-11-07 21:06 | disposition home or self-care (01) | DRG 871 ==
LOC: ER 20:01 → ICUW 20:02 → MEDS 23:41 → ICUW 23:41 → PCU 11-04 21:46 → MEDS 11-06 10:46
PROVIDERS: Emergency Medicine; Internal Medicine; Student in an Organized Health Care Education/Training Program; ADMIT Internal Medicine
PROC: 5A09457 Assistance with Respiratory Ventilation, 24-96 Consecutive Hours, Continuous Positive Airway Pressure (ICD-10-PCS; principal; 2022-11-02)
PROC: 0T9B70Z Drainage of Bladder with Drainage Device, Via Natural or Artificial Opening (ICD-10-PCS; 2022-11-02)
PROC: 3E033XZ Introduction of Vasopressor into Peripheral Vein, Percutaneous Approach (ICD-10-PCS; 2022-11-02)
PROC: 3E03329 Introduction of Other Anti-infective into Peripheral Vein, Percutaneous Approach (ICD-10-PCS; 2022-11-02)
PROC: 05HY33Z Insertion of Infusion Device into Upper Vein, Percutaneous Approach (ICD-10-PCS; 2022-11-03)
DX: A41.9 Sepsis, unspecified organism (principal); G92.8 Other toxic encephalopathy; R65.21 Severe sepsis with septic shock; J18.9 Pneumonia, unspecified organism; J96.01 Acute respiratory failure with hypoxia; J96.02 Acute respiratory failure with hypercapnia; K83.1 Obstruction of bile duct; N17.9 Acute kidney failure, unspecified; J44.0 Chronic obstructive pulmonary disease with (acute) lower respiratory infection; F11.20 Opioid dependence, uncomplicated; K83.09 Other cholangitis; E87.29 Other acidosis; Z66 Do not resuscitate; Z20.822 Contact with and (suspected) exposure to COVID-19; I12.9 Hypertensive chronic kidney disease with stage 1 through stage 4 chronic kidney disease, or unspecified chronic kidney disease; N18.9 Chronic kidney disease, unspecified; K86.89 Other specified diseases of pancreas; F17.210 Nicotine dependence, cigarettes, uncomplicated; G89.4 Chronic pain syndrome; F41.9 Anxiety disorder, unspecified; F32.A Depression, unspecified; K70.0 Alcoholic fatty liver; M19.90 Unspecified osteoarthritis, unspecified site; K76.82 Hepatic encephalopathy; K21.9 Gastro-esophageal reflux disease without esophagitis; G62.9 Polyneuropathy, unspecified; D72.829 Elevated white blood cell count, unspecified; Z96.642 Presence of left artificial hip joint; Z90.89 Acquired absence of other organs; Z90.710 Acquired absence of both cervix and uterus; Z88.6 Allergy status to analgesic agent; Z79.2 Long term (current) use of antibiotics; Z79.899 Other long term (current) drug therapy; W01.198A Fall on same level from slipping, tripping and stumbling with subsequent striking against other object, initial encounter
CPT/HCPCS: 0241U; 36415; 36569; 51701; 51702; 70450; 71045; 74177; 80053; 81001; 82140; 82803; 83605; 83690; 83880; 84132; 85025; 85610; 87040; 87086; 93005; 93010; 94640; 94660; 94664; 94760; 94762; 96365-59; 96366-59; 97116; 97161; 99285-25; A9270; C1751; J1644; J2310; J2543; J7040; J7050; J7060; J7120; Q9967

== ENCOUNTER 2022-12-04 19:05 | Inpatient (IN) | payer OTHER ==
[~2022-12-04] VITALS: Ht 165.1 cm; Wt 73.2 kg
[~2022-12-04 19:05] MED LIST changes: +BUSP10 PO; +CEFU250T47 PO; +CHOLP PO; +CREON 36000 UNIT PO; +CYMBALTA60 M1 PO; +HYDR1TAB94 PO; +LACT PO; +LYRICA200 M1 PO; +Norco 5-325 MG PO; +Zestril30 MG PO
[2022-12-04 19:34] LABS: BASOPHILS ABSOLUTE AUTO 0.05 K/mm3 (0.00-0.23); BASOPHILS PERCENT AUTO 1 % (0-2); EOSINOPHILS ABSOLUTE AUTO 0.09 K/mm3 (0.00-0.68); EOSINOPHILS PERCENT AUTO 1 % (0-6); Hematocrit 39.4 % (33.0-51.0); Hemoglobin 12.8 g/dL (11.5-16.0); IMMATURE GRAN ABSOLUTE AUTO 0.03 K/mm3 (0.00-0.10); IMMATURE GRAN PERCENT AUTO 0 % (0-1); LYMPHOCYTES ABSOLUTE AUTO 2.06 K/mm3 (0.84-5.20); LYMPHOCYTES PERCENT AUTO 28 % (21-46); MONOCYTES ABSOLUTE AUTO 0.57 K/mm3 (0.16-1.47); MONOCYTES PERCENT AUTO 8 % (4-13); Mean Corpuscular HGB 31.8 pg (26.0-34.0); Mean Corpuscular HGB Conc 32.5 g/dL (31.5-36.5); Mean Corpuscular Volume 98 fL (80-100); Mean Platelet Volume 11.4 fL (9.1-12.4); NEUTROPHILS ABSOLUTE AUTO 4.62 K/mm3 (1.96-9.15); NEUTROPHILS PERCENT AUTO 62 % (41-73); Platelet Count 230 K/mm3 (150-400); RDW Coefficient Variation 15.6 % (11.7-14.2); RDW Standard Deviation 56.6 fL (35.1-46.3); Red Blood Cell Count 4.03 M/mm3 (3.80-5.20); White Blood Cell Count 7.42 K/mm3 (4.00-11.30)
[2022-12-04 19:56] LABS: Albumin, Blood 3.1 g/dL (3.4-5.0); Albumin/Globulin Ratio 0.9 (0.8-1.8); Bilirubin, Total 0.4 mg/dL (0.1-1.0); Bun/Creatinine Ratio 12.1 (12.0-20.0); Creatinine, Blood 4.7 mg/dL (0.40-1.00); Globulin, Blood 3.6 g/dL (2.2-4.0); Potassium, Blood 4.2 mmol/L (3.5-5.5); Total Protein, Blood 6.7 g/dL (6.4-8.2)
[2022-12-04 20:28] LABS: Source, Urine Clean Catch
[2022-12-04 20:37] LABS: Appearance, Urine Clear (Clear); Bilirubin, Urine Neg (Neg); Blood, Urine 1+ (Neg); Color, Urine Yellow (P-Yellow); Glucose Qualitative, Urine Neg (Neg); Ketones, Urine Neg (Neg); Leukocyte Esterase, Urine 2+ (Neg); Nitrite, Urine Neg (Neg); Protein, Urine 2+ (Neg); Specific Gravity, Urine 1.015 (1.003-1.022); Urobilinogen, Urine NORM (Normal)
[2022-12-04 20:50] LABS: Yeast/Fungi Urine Many /hpf
[2022-12-04 20:51] LABS: Bacteria Many /hpf; Squamous Epithelial Cells Few /hpf (Few)
[2022-12-04 20:52] LABS: Transitional Epithelial Cells Rare /hpf (0-Rare)
[2022-12-04 23:51] VITALS: BP 110/62
[2022-12-05 05:08] VITALS: BP 107/76
[2022-12-05 05:40] LABS: BASOPHILS ABSOLUTE AUTO 0.03 K/mm3 (0.00-0.23); BASOPHILS PERCENT AUTO 1 % (0-2); EOSINOPHILS ABSOLUTE AUTO 0.06 K/mm3 (0.00-0.68); EOSINOPHILS PERCENT AUTO 1 % (0-6); Hematocrit 34.7 % (33.0-51.0); Hemoglobin 11.6 g/dL (11.5-16.0); IMMATURE GRAN ABSOLUTE AUTO 0.02 K/mm3 (0.00-0.10); IMMATURE GRAN PERCENT AUTO 0 % (0-1); LYMPHOCYTES ABSOLUTE AUTO 1.94 K/mm3 (0.84-5.20); LYMPHOCYTES PERCENT AUTO 37 % (21-46); MONOCYTES ABSOLUTE AUTO 0.49 K/mm3 (0.16-1.47); MONOCYTES PERCENT AUTO 9 % (4-13); Mean Corpuscular HGB 32.2 pg (26.0-34.0); Mean Corpuscular HGB Conc 33.4 g/dL (31.5-36.5); Mean Corpuscular Volume 96 fL (80-100); Mean Platelet Volume 11.6 fL (9.1-12.4); NEUTROPHILS ABSOLUTE AUTO 2.72 K/mm3 (1.96-9.15); NEUTROPHILS PERCENT AUTO 52 % (41-73); Platelet Count 187 K/mm3 (150-400); RDW Coefficient Variation 15.4 % (11.7-14.2); RDW Standard Deviation 54.9 fL (35.1-46.3); White Blood Cell Count 5.26 K/mm3 (4.00-11.30)
--- NOTE | 2022-12-05 05:42 | NUR ---
RECEIVED PATIENT ALERT AND ORIENTED X4 FROM ED, GOOD HISTORIAN, COOPERATIVE WITH CARE. CONTINUES TO BE HYPOTENSIVE, TELE NS, PIV INFUSING NS AT 125, ON RA, LUNG SOUND ARE VERY DIM, NO COUGH. PER H/P PATIENT HAS COPD, WHICH SHE DENIES. SHE IS A [employer] EVERY DAY SMOKER AND DOES NOT WANT CESSATION EDUCATION. CONSULT CALLED INTO DR MOHAMUD THIS MORNING, WILL ASSESS AND TREAT. 1X ASSIT TO BSC, EXTREME FALL RISK, ALRM ON. NO OTHER ISSUES TO REPORT.
[2022-12-05 06:15] LABS: Albumin, Blood 2.4 g/dL (3.4-5.0); Albumin/Globulin Ratio 0.8 (0.8-1.8); Bilirubin, Total 0.6 mg/dL (0.1-1.0); Bun/Creatinine Ratio 12.1 (12.0-20.0); Calcium, Blood 8.1 mg/dL (8.5-10.1); Creatinine, Blood 4.2 mg/dL (0.40-1.00); Globulin, Blood 2.9 g/dL (2.2-4.0); Potassium, Blood 3.9 mmol/L (3.5-5.5); Total Protein, Blood 5.3 g/dL (6.4-8.2)
[2022-12-05 07:56] VITALS: BP 105/61
--- NOTE | 2022-12-05 18:07 | NUR ---
SHIFT SUMMARY PT AOX4 AND A SBA TO THE BATHROOM. SHE HAS BLADDER SCANS ORDERED, SEE BLADDER MANAGEMENT FOR SCANS AND STRAIGHT CATH INFORMATION. SHE HAS HAD NO C/O PAIN/N/V/CP THIS SHIFT. SHE HAS BEEN SLEEPING A MAJORITY OF THE SHIFT, ACTING FAIRLY LETHARGIC. SHE IS AROUSABLE BUT DOES SLEEP DEEPLY. HER HAS BEEN IN AND OUT OF THE ROOM. A RENAL BLADDER U/S WAS COMPLETED TODAY. CALL LIGHT IS WITHIN REACH. WILL REPORT TO ONCOMING NURSE.
[2022-12-05 19:08] VITALS: BP 114/68
[2022-12-06 03:11] VITALS: BP 133/81
--- NOTE | 2022-12-06 04:21 | NUR ---
SHIFT SUMMARY PT A&OX4, AND COOPERATIVE WITH CARE. NO ACUTE CHANGES, VSS. MEDICATED FOR PAIN ONCE WITH TYLENOL. 1 ASSIST TO BATHROOM, PT VOIDED 900ML AROUND 2245. TOLERATING PO INTAKE NO NAUSEA. NS @ 75ML/HR. CALLS APPROPRIATELY, CALL LIGHT WITHIN REACH.
[2022-12-06 05:41] LABS: Hematocrit 31.9 % (33.0-51.0); Hemoglobin 10.6 g/dL (11.5-16.0)
[2022-12-06 06:12] LABS: Albumin, Blood 2.3 g/dL (3.4-5.0); Anion Gap 7 mmol/L (6-16); Blood Urea Nitrogen 44 mg/dL (8-24); Bun/Creatinine Ratio 12.4 (12.0-20.0); CO2, Blood 18 mmol/L (21-32); CPK Creatine Kinase 141 U/L (26-193); Chloride, Blood 121 mmol/L (98-108); Creatinine, Blood 3.55 mg/dL (0.40-1.00); Glomerular Filtration Rate 14 (60-); Glucose, Blood 115 mg/dL (70-99); Magnesium, Blood 1.5 mg/dL (1.6-2.4); Phosphorus, Blood 5.8 mg/dL (2.5-4.9); Potassium, Blood 3.5 mmol/L (3.5-5.5); Sodium, Blood 146 mmol/L (136-145); Uric Acid, Blood 6.6 mg/dL (2.6-6.0)
[2022-12-06 07:32] VITALS: BP 129/86
--- NOTE | 2022-12-06 17:51 | NUR ---
SHIFT SUMMARY NO ACUTE CHANGES, PT CONTINUES TO HAVE GOOD URINE OUTPUT. SHE REMAINS AOX4 AND SBA TO THE BATHROOM. SHE CALLS WELL AND MAKES HER NEEDS KNOWN. PT WORKED WITH OT TODAY AND TOLERATED IT WELL. SHE HAS HAD NO COMPLAINTS TODAY AND HAS SLEPT MOST OF THE DAY BUT AROUSABLE. CALL LIGHT IS WITHIN REACH, BED IN LOWEST POSITION. WILL REPORT TO ONCOMING NURSE.
[2022-12-06 20:05] VITALS: BP 132/79
[2022-12-07 05:23] VITALS: BP 121/79
[2022-12-07 06:20] LABS: Albumin, Blood 2.3 g/dL (3.4-5.0); Anion Gap 6 mmol/L (6-16); Blood Urea Nitrogen 38 mg/dL (8-24); Bun/Creatinine Ratio 13.3 (12.0-20.0); CO2, Blood 21 mmol/L (21-32); Calcium, Blood 7.9 mg/dL (8.5-10.1); Chloride, Blood 120 mmol/L (98-108); Creatinine, Blood 2.85 mg/dL (0.40-1.00); Glomerular Filtration Rate 19 (60-); Glucose, Blood 128 mg/dL (70-99); Magnesium, Blood 1.5 mg/dL (1.6-2.4); Phosphorus, Blood 4.8 mg/dL (2.5-4.9); Potassium, Blood 3.1 mmol/L (3.5-5.5); Sodium, Blood 147 mmol/L (136-145)
--- NOTE | 2022-12-07 06:44 | NUR ---
SUMMARY: PT A/OX4, CALLS APPROPRIATELY TO SPECIFY NEEDS AND IS PLEASANT AND COOPERATIVE W/CARE. SHE'S SBA OOB AND CONTINENT TO RESTROOM TO VOID, NO ST.CATH REQUIRED D/T ADEQUATE UO. HOME MEDS RX'D W/HS MEDS PROVIDED PER EMAR AND PRN NORCO GIVEN FOR TOLERABLE RELIEF OF LOW BACK PAIN. NA BICARB IS INFUSING AND IV ABX RECEIVED. NO ACUTE CHANGES, VSS/AFEBRILE AND PT REMAINS ON TELE IN NSR AT 80'S BPM. WCTM AND REPORT TO DAY RN.
[2022-12-07 07:54] VITALS: BP 126/87
[2022-12-07 15:58] VITALS: BP 125/82
--- NOTE | 2022-12-07 17:10 | NUR ---
SHIFT SUMMARY- VSS. C/O PAIN, TREATED PER EMAR. PT URINATING ON OWN, SEE I&O'S. A&O X4. TOLERATING IV THERAPY WELL. APPETITE OK. NO ACUTE CHANGES. WILL CONTINUE TO MONITOR. CALL LIGHT IN REACH. BED ALARM ON.
[2022-12-07 19:27] VITALS: BP 108/73
--- NOTE | 2022-12-08 02:14 | NUR ---
MADE AWARE OF DEVELOPMENT OF 1ST DEGREE BLOCK TONIGHT. PT ASYMPTOMATIC OF CARDIAC DISTRESS. NO NEW ORDERS RECIEVED.
[2022-12-08 02:57] VITALS: BP 119/57
--- NOTE | 2022-12-08 06:12 | NUR ---
SUMMARY: PT A/OX4, CALLS APPROPRIATELY AND IS PLEASANT AND COOPERATIVE W/CARE. SHE'S AWARE OF LIMITATIONS AND IS SBA/INDEPENDENT IN ROOM. WANDA RECIEVED PRN FOR TOLERABLE RELIEF OF CHRONIC LOW BACK PAIN AND D5 1/2 NS INFUSES PER EMAR. SHE BEGAN SHIFT IN NSR BUT DEVELOPED 1ST DEGREE BLOCK T/O NOCTE, HR 60'S-100'S BPM. PT ASYMPTOMATIC OF CARDIAC DISTRESS AND NO NEW ORDERS RECIEVED WHEN WAS NOTIFIED. AM LABS PENDING AND POSSIBLE D/C TODAY IF CREAT<2.5 AND AGREES. NO ACUTE CHANGES, VSS/AFEBRILE. WCTM/REPORT TO DAY RN.
[2022-12-08 06:19] LABS: Hematocrit 33.5 % (33.0-51.0); Hemoglobin 10.9 g/dL (11.5-16.0)
[2022-12-08 06:36] LABS: Albumin, Blood 2.2 g/dL (3.4-5.0); Anion Gap 6 mmol/L (6-16); Blood Urea Nitrogen 28 mg/dL (8-24); CO2, Blood 20 mmol/L (21-32); Chloride, Blood 119 mmol/L (98-108); Creatinine, Blood 2.15 mg/dL (0.40-1.00); Glomerular Filtration Rate 26 (60-); Glucose, Blood 124 mg/dL (70-99); Magnesium, Blood 1.5 mg/dL (1.6-2.4); Phosphorus, Blood 4.4 mg/dL (2.5-4.9); Potassium, Blood 3.4 mmol/L (3.5-5.5); Sodium, Blood 145 mmol/L (136-145)
[2022-12-08 07:54] VITALS: BP 116/74
--- NOTE | 2022-12-08 15:32 | NUR ---
PT DISCHARGED WITH DC INSTRUCTIONS. AWARE SHE NEEDS TO FOLLOW UP WITH DR MOHAMUD TUESDAY AT 0900. HOME WITH , HAS OXYGEN FOR TRANSPORT. WILL DRIVE PT HOME.
== END 2022-12-08 14:15 | disposition home or self-care (01) | DRG 682 ==
LOC: ER 19:05 → MEDS 22:05 → ENPENDDIS 12-08 13:19 → MEDS 12-08 14:15
PROVIDERS: Emergency Medicine; Internal Medicine Nephrology; Student in an Organized Health Care Education/Training Program; ADMIT Student in an Organized Health Care Education/Training Program
DX: N17.9 Acute kidney failure, unspecified (principal); G93.41 Metabolic encephalopathy; E87.20 Acidosis, unspecified; B37.49 Other urogenital candidiasis; I12.9 Hypertensive chronic kidney disease with stage 1 through stage 4 chronic kidney disease, or unspecified chronic kidney disease; N18.30 Chronic kidney disease, stage 3 unspecified; Z66 Do not resuscitate; R82.81 Pyuria; J44.9 Chronic obstructive pulmonary disease, unspecified; E87.6 Hypokalemia; E83.42 Hypomagnesemia; K76.0 Fatty (change of) liver, not elsewhere classified; M51.36 Other intervertebral disc degeneration, lumbar region; D63.1 Anemia in chronic kidney disease; E88.09 Other disorders of plasma-protein metabolism, not elsewhere classified; F32.A Depression, unspecified; M19.90 Unspecified osteoarthritis, unspecified site; F17.210 Nicotine dependence, cigarettes, uncomplicated; K21.9 Gastro-esophageal reflux disease without esophagitis; I95.9 Hypotension, unspecified; E86.9 Volume depletion, unspecified; G62.9 Polyneuropathy, unspecified; N20.0 Calculus of kidney; Z87.19 Personal history of other diseases of the digestive system; Z90.710 Acquired absence of both cervix and uterus; Z90.89 Acquired absence of other organs; Z96.642 Presence of left artificial hip joint; Z90.721 Acquired absence of ovaries, unilateral; Z79.811 Long term (current) use of aromatase inhibitors; Z79.899 Other long term (current) drug therapy; Z98.890 Other specified postprocedural states; Z88.8 Allergy status to other drugs, medicaments and biological substances; Z79.2 Long term (current) use of antibiotics; Z91.81 History of falling; Z86.61 Personal history of infections of the central nervous system; Z87.828 Personal history of other (healed) physical injury and trauma
CPT/HCPCS: 36415; 51701; 70450; 71046; 76770; 80053; 80069; 81001; 82140; 82550; 83735; 84550; 85014; 85018; 85025; 87086; 87106; 93005; 93010; 94640; 94664; 94760; 96365-59; 97110; 97116; 97161; 97165; 97530; 97535; 99285-25; A9270; J0696; J1644; J3475; J3480; J7030; J7042; J7050

== ENCOUNTER 2023-07-27 06:22 | Day surgery (SDC) | payer OTHER ==
[2023-07-27] VITALS (11 sets, daily range): BP systolic 93–118; BP diastolic 67–79
[~2023-07-27] VITALS: Ht 165.1 cm; Wt 66.0 kg
[~2023-07-27 06:22] MED LIST changes: +PROP10; +Prozac20 MG PO; +SYMBICORT 160-4.6 GM
--- NOTE | 2023-07-27 07:31 | NUR ---
Surgical site prepped with 2% Chlorhexidine cloth wipe. History, Chart, Medications and Allergies reviewed before start of procedure. Pre-Op teaching done. Pt verbalizes understanding. Patient States Post-Procedure ride home has been arranged. DR. MATHUR NOTIFIED THAT THE PT REPORTED THAT SHE TOOK A "SIP" OF COFFEE W CREAMER AT APPROX 0510 WHEN TAKING HER PROPANOLOL. DR ALLEN NOTIFIED OF PT'S LS WHICH WERE SLIGHTLY CONGESTED W MINOR BIBASILAR WHEEZES.
--- NOTE | 2023-07-27 08:10 | NUR ---
07/27/23 0810 [place] Ramon [id number] 30MLS USED FOR CHOLANGIOGRAM. LOT #[id number]. EXPIRATION: APRIL 2025.
--- NOTE | 2023-07-27 09:14 | NUR ---
INTO STEP S/P CHOLECYSTECTOMY.PT A&O X 4. PT REPORTS 7/10 ABDOMINAL PAIN. EXOFEN TO ABDOMEN X 4 C/D/I. PT DENIES NAUSEA-TOLERATING PO FLUIDS WELL.
--- NOTE | 2023-07-27 09:30 | NUR ---
PT REQUESTING "PERCOCET" FOR PAIN MEDICATION. PT STATES THAT NORCO "DOESN'T WORK FOR ME." PT AGREED TO ATTEMPT TO TAKE NORCO-SEE EMAR.
--- NOTE | 2023-07-27 09:35 | NUR ---
SPOKE WITH DR. GUTIERREZ REGARDING PT CONCERN REGARDING PAIN MEDICATION. ORDER GIVEN FOR PERCOCET-SEE EMAR. CONFIRMED THAT THE RX ELECTRONICALLY SENT WAS IN FACT PERCOCET.
--- NOTE | 2023-07-27 10:28 | NUR ---
Patient up to Ambulate independently. Gait steady. Exofen to procedure site x4 clean, dry, intact with no visible drainage, swelling, erythema or bruising noted. Pt discharged to home-out via wheelchair with belongings and discharge instrucitons on hand.
[2023-07-28] MEDS ORDERED: NARCAN4 M1 (21:05)
== END 2023-07-27 10:28 | disposition home or self-care (01) ==
LOC: ORD 06:22 → ORSCMMR 06:22 → ORD 07:30
PROVIDERS: Surgery
PROC: 0FT44ZZ Resection of Gallbladder, Percutaneous Endoscopic Approach (ICD-10-PCS; principal; 2023-07-27 07:30)
PROC: BF031ZZ Plain Radiography of Gallbladder and Bile Ducts using Low Osmolar Contrast (ICD-10-PCS; principal; 2023-07-27 07:30)
DX: K80.10 Calculus of gallbladder with chronic cholecystitis without obstruction (principal); K86.1 Other chronic pancreatitis; R74.8 Abnormal levels of other serum enzymes; F17.210 Nicotine dependence, cigarettes, uncomplicated; J44.9 Chronic obstructive pulmonary disease, unspecified; N18.4 Chronic kidney disease, stage 4 (severe); F41.9 Anxiety disorder, unspecified; Z79.899 Other long term (current) drug therapy
CPT/HCPCS: 74300; 88304; A9270; C1729; J0690; J1100; J1885; J2250; J2405; J2704; J2710; J3010; J7120

== ENCOUNTER 2023-07-28 20:18 | Emergency (ER) | payer OTHER ==
[~2023-07-28] VITALS: Ht 167.6 cm; Wt 65.3 kg
[2023-07-28 20:21] VITALS: BP 148/135
[2023-07-28] MEDS ORDERED: NARCAN4 M1 (21:05)
== END 2023-07-28 21:16 | disposition home or self-care (01) ==
LOC: ER 20:18
DX: S06.0X9A Concussion with loss of consciousness of unspecified duration, initial encounter (principal); T40.2X1A Poisoning by other opioids, accidental (unintentional), initial encounter; G62.9 Polyneuropathy, unspecified; F17.200 Nicotine dependence, unspecified, uncomplicated; F17.290 Nicotine dependence, other tobacco product, uncomplicated; J44.9 Chronic obstructive pulmonary disease, unspecified; M19.90 Unspecified osteoarthritis, unspecified site; Z79.51 Long term (current) use of inhaled steroids; Z79.899 Other long term (current) drug therapy; Z88.8 Allergy status to other drugs, medicaments and biological substances; W18.11XA Fall from or off toilet without subsequent striking against object, initial encounter; Y92.002 Bathroom of unspecified non-institutional (private) residence as the place of occurrence of the external cause; Y93.89 Activity, other specified
CPT/HCPCS: 99284